=== PATIENT | female | born 1955 | race Caucasian/White ===

== ENCOUNTER → 2017-08-28 07:53 | Outpatient (REF) | payer OTHER, MEDICAID, SELFPAY ==
[2017-08-28 08:57] LABS: PTT Partial Thromboplastin Tim 42 SECONDS (26.4-36.2)
== END ==
LOC: LAB 07:53
PROVIDERS: Visit Provider Internal Medicine
DX: I26.99 Other pulmonary embolism without acute cor pulmonale (principal)
CPT/HCPCS: 36415; 85730

== ENCOUNTER → 2017-09-13 07:12 | Outpatient (REF) | payer OTHER, MEDICAID, SELFPAY ==
[2017-09-13 08:10] LABS: INR 3.1 (0.9-1.3); Prothrombin Time 33.3 SECONDS (10.1-12.7)
== END ==
LOC: LAB 07:12
PROVIDERS: Family Provider Nurse Practitioner Family; Visit Provider Internal Medicine
DX: Z79.01 Long term (current) use of anticoagulants (principal); Z92.29 Personal history of other drug therapy
CPT/HCPCS: 36415; 85610

== ENCOUNTER → 2017-09-18 14:13 | Outpatient (REF) | payer OTHER, MEDICAID, SELFPAY ==
[2017-09-18 14:58] LABS: Prothrombin Time 32.1 SECONDS (10.1-12.7)
== END ==
LOC: LAB 14:13
PROVIDERS: Visit Provider Nurse Practitioner Family
DX: I26.99 Other pulmonary embolism without acute cor pulmonale (principal)
CPT/HCPCS: 85610

== ENCOUNTER → 2017-10-02 07:17 | Outpatient (REF) | payer OTHER, MEDICAID, SELFPAY | LOC: LAB 07:17 | PROVIDERS: Visit Provider Internal Medicine | DX: I48.91 Unspecified atrial fibrillation (principal) | CPT/HCPCS: 36415; 85610 ==

== ENCOUNTER → 2017-10-30 07:47 | Outpatient (REF) | payer OTHER, MEDICAID, SELFPAY ==
[2017-10-30 08:47] LABS: INR 2.5 (0.9-1.3); Prothrombin Time 27.2 SECONDS (10.1-12.7)
== END ==
LOC: LAB 07:47
PROVIDERS: Family Provider Nurse Practitioner Family; Visit Provider Nurse Practitioner Family
DX: Z00.00 Encounter for general adult medical examination without abnormal findings (principal); Z92.29 Personal history of other drug therapy
CPT/HCPCS: 36415; 85610

== ENCOUNTER → 2017-11-29 09:33 | Outpatient (REF) | payer OTHER, MEDICAID, SELFPAY ==
[2017-11-29 10:15] LABS: INR 2.8 (0.9-1.3); Prothrombin Time 31.5 SECONDS (10.1-12.7)
== END ==
LOC: LAB 09:33
PROVIDERS: Family Provider Nurse Practitioner Family; Visit Provider Nurse Practitioner Family
DX: Z00.00 Encounter for general adult medical examination without abnormal findings (principal)
CPT/HCPCS: 36415; 85610

== ENCOUNTER → 2017-12-25 07:16 | Outpatient (REF) | payer OTHER, MEDICAID, SELFPAY ==
[2017-12-25 09:07] LABS: BUN Creatinine Ratio 18.8 (6-22); Blood Urea Nitrogen 15 mg/dL (7-17); Calcium 9.2 mg/dL (8.4-10.2); Carbon Dioxide 34 mmol/L (22-32); Chloride 100 mmol/L (98-107); Estimated Glomerular Filt Rate > 60.0 mL/min (>60); Glucose 146 mg/dL (80-110); HEMOLYSIS < 15 (0-50); Potassium 4.4 mmol/L (3.4-5.1); Sodium 143 mmol/L (137-145)
== END ==
LOC: LAB 07:16
PROVIDERS: Family Provider Nurse Practitioner Family; Visit Provider Nurse Practitioner Family
DX: R60.9 Edema, unspecified (principal)
CPT/HCPCS: 36415; 80048

== ENCOUNTER → 2017-12-27 06:38 | Outpatient (REF) | payer OTHER, MEDICAID, SELFPAY ==
[2017-12-27 09:46] LABS: INR 3.7 (0.9-1.3)
== END ==
LOC: LAB 06:38
PROVIDERS: Family Provider Nurse Practitioner Family; Visit Provider Nurse Practitioner Family
DX: Z00.00 Encounter for general adult medical examination without abnormal findings (principal)
CPT/HCPCS: 36415; 85610

== ENCOUNTER → 2018-01-03 12:26 | Outpatient (REF) | payer OTHER, MEDICAID, SELFPAY ==
[2018-01-03 12:47] LABS: INR 1.8 (0.9-1.3); Prothrombin Time 19.7 SECONDS (10.1-12.7)
== END ==
LOC: LAB 12:26
PROVIDERS: Family Provider Nurse Practitioner Family; Visit Provider Internal Medicine
DX: I48.91 Unspecified atrial fibrillation (principal); Z51.81 Encounter for therapeutic drug level monitoring
CPT/HCPCS: 85610

== ENCOUNTER → 2018-01-10 07:06 | Outpatient (REF) | payer OTHER, MEDICAID, SELFPAY ==
[2018-01-10 07:38] LABS: INR 1.5 (0.9-1.3); Prothrombin Time 16.6 SECONDS (10.1-12.7)
== END ==
LOC: LAB 07:06
PROVIDERS: Family Provider Nurse Practitioner Family; Visit Provider Internal Medicine
DX: Z51.81 Encounter for therapeutic drug level monitoring (principal)
CPT/HCPCS: 36415; 85610

== ENCOUNTER → 2018-01-12 15:51 | Outpatient (REF) | payer OTHER, MEDICAID, SELFPAY ==
[2018-01-12 15:55] LABS: Hematocrit 38.5 % (36-46); Hemoglobin 13.3 g/dL (12.0-16.0)
== END ==
LOC: LAB 15:51
PROVIDERS: Family Provider Nurse Practitioner Family; Visit Provider Nurse Practitioner Family
DX: N95.0 Postmenopausal bleeding (principal)
CPT/HCPCS: 85014; 85018

== ENCOUNTER → 2018-01-16 12:03 | Outpatient (REF) | payer OTHER, MEDICAID, SELFPAY ==
[2018-01-16 12:11] LABS: Add Manual Diff / Slide Review NO; Basophils Percent Auto 0.8 % (0-2); Eosinophils Percent Auto 3.2 % (2-4); Hematocrit 35.6 % (36-46); Hemoglobin 11.8 g/dL (12.0-16.0); Lymphocytes Percent Auto 20.5 % (25-40); Mean Corpuscular HGB Conc 33.3 % (30-36); Mean Corpuscular Hemoglobin 30.1 PG (26-34); Mean Corpuscular Volume 90.6 fL (80-100); Monocytes Percent Auto 5.5 % (3-14); Neutrophils Absolute Auto 5400 /uL (3000-5900); Platelet Count 252 X10^3/uL (150-400); Red Blood Cell Count 3.92 X10^6/uL (4.0-5.2); Red Cell Distribution Width 13.7 % (11.6-14.8); White Blood Cell Count 7.7 X10^3/uL (4.5-11.0)
[2018-01-16 12:12] LABS: INR 1.8 (0.9-1.3); Prothrombin Time 19.1 SECONDS (10.1-12.7)
[2018-01-16 12:21] LABS: Blood Urea Nitrogen 17 mg/dL (7-17); Calcium 9.5 mg/dL (8.4-10.2); Carbon Dioxide 34 mmol/L (22-32); Chloride 98 mmol/L (98-107); Estimated Glomerular Filt Rate 56.4 mL/min (>60); Glucose 169 mg/dL (80-110); HEMOLYSIS < 15 (0-50); Potassium 4.5 mmol/L (3.4-5.1); Sodium 144 mmol/L (137-145)
== END ==
LOC: LAB 12:03
PROVIDERS: Family Provider Nurse Practitioner Family; Visit Provider Internal Medicine
DX: N93.9 Abnormal uterine and vaginal bleeding, unspecified (principal)
CPT/HCPCS: 80048; 85025; 85610

== ENCOUNTER → 2018-01-25 14:33 | Outpatient (REF) | payer OTHER, MEDICAID, SELFPAY ==
[2018-01-25 14:39] LABS: Add Manual Diff / Slide Review NO; Basophils Percent Auto 0.7 % (0-2); Eosinophils Percent Auto 3.7 % (2-4); Hematocrit 32.6 % (36-46); Hemoglobin 11.2 g/dL (12.0-16.0); Lymphocytes Percent Auto 22.5 % (25-40); Mean Corpuscular HGB Conc 34.2 % (30-36); Mean Corpuscular Hemoglobin 30.5 PG (26-34); Monocytes Percent Auto 5.7 % (3-14); Neutrophils Absolute Auto 4700 /uL (3000-5900); Neutrophils Percent Auto 67.4 % (50-75); Platelet Count 277 X10^3/uL (150-400); Red Blood Cell Count 3.67 X10^6/uL (4.0-5.2); Red Cell Distribution Width 13.6 % (11.6-14.8)
[2018-01-25 14:48] LABS: INR 2.1 (0.9-1.3); Prothrombin Time 22.7 SECONDS (10.1-12.7)
== END ==
LOC: LAB 14:33
PROVIDERS: Family Provider Nurse Practitioner Family; Visit Provider Internal Medicine
DX: I10 Essential (primary) hypertension (principal); N93.9 Abnormal uterine and vaginal bleeding, unspecified; Z92.29 Personal history of other drug therapy
CPT/HCPCS: 85025; 85610

== ENCOUNTER → 2018-01-30 10:35 | Outpatient (REF) | payer OTHER, MEDICAID, SELFPAY ==
[2018-01-30 10:57] LABS: Add Manual Diff / Slide Review NO; Basophils Percent Auto 1.1 % (0-2); Eosinophils Percent Auto 3.5 % (2-4); Hematocrit 33.5 % (36-46); Hemoglobin 11.3 g/dL (12.0-16.0); Lymphocytes Percent Auto 20.8 % (25-40); Mean Corpuscular HGB Conc 33.9 % (30-36); Mean Corpuscular Hemoglobin 30.6 PG (26-34); Mean Corpuscular Volume 90.5 fL (80-100); Monocytes Percent Auto 5.6 % (3-14); Neutrophils Absolute Auto 4500 /uL (3000-5900); Platelet Count 285 X10^3/uL (150-400); Red Cell Distribution Width 14.2 % (11.6-14.8); White Blood Cell Count 6.6 X10^3/uL (4.5-11.0)
[2018-01-30 10:58] LABS: INR 2.1 (0.9-1.3); Prothrombin Time 22.9 SECONDS (10.1-12.7)
[2018-01-30 11:13] LABS: Blood Urea Nitrogen 16 mg/dL (7-17); Calcium 8.9 mg/dL (8.4-10.2); Carbon Dioxide 32 mmol/L (22-32); Chloride 99 mmol/L (98-107); Estimated Glomerular Filt Rate > 60.0 mL/min (>60); Glucose 183 mg/dL (80-110); HEMOLYSIS < 15 (0-50); Sodium 141 mmol/L (137-145)
[2018-01-30 11:38] LABS: Thyroid Stimulating Hormone 3.36 uIU/mL (0.47-4.68)
== END ==
LOC: LAB 10:35
PROVIDERS: Family Provider Nurse Practitioner Family; Visit Provider Internal Medicine
DX: N93.9 Abnormal uterine and vaginal bleeding, unspecified (principal)
CPT/HCPCS: 80048; 84443; 85025; 85610

== ENCOUNTER → 2018-01-31 07:41 | Outpatient (REF) | payer OTHER, MEDICAID, SELFPAY ==
[2018-01-31 08:17] LABS: INR 2.2 (0.9-1.3); Prothrombin Time 24.4 SECONDS (10.1-12.7)
== END ==
LOC: LAB 07:41
PROVIDERS: Family Provider Nurse Practitioner Family; Visit Provider Internal Medicine
DX: Z51.81 Encounter for therapeutic drug level monitoring (principal)
CPT/HCPCS: 36415; 85610

== ENCOUNTER → 2018-02-11 13:01 | Outpatient (CLI) | payer OTHER, MEDICAID, SELFPAY | PROVIDERS: Family Provider Nurse Practitioner Family; Visit Provider Internal Medicine | DX: N95.0 Postmenopausal bleeding (principal); Z53.9 Procedure and treatment not carried out, unspecified reason ==

== ENCOUNTER → 2018-02-21 07:08 | Outpatient (REF) | payer OTHER, MEDICAID, SELFPAY ==
[2018-02-21 07:35] LABS: Hematocrit 34.1 % (36-46); Hemoglobin 11.4 g/dL (12.0-16.0)
== END ==
LOC: LAB 07:08
PROVIDERS: Family Provider Nurse Practitioner Family; Visit Provider Nurse Practitioner Family
DX: N93.9 Abnormal uterine and vaginal bleeding, unspecified (principal)
CPT/HCPCS: 36415; 85014; 85018

== ENCOUNTER → 2018-03-04 14:44 | Outpatient (CLI) | payer OTHER, MEDICAID, SELFPAY ==
--- NOTE | 2018-03-04 | DI.US.S_ITS ---
PROCEDURE: US PELVIC COMPLETE INDICATIONS: POST MENOPAUSAL BLEEDING TECHNIQUE: Real-time scanning was performed of the pelvic organs, with image documentation. Additional endovaginal scanning was necessary due to incomplete visualization of the adnexal and endometrial structures by transabdominal scanning. COMPARISON: None. FINDINGS: This study is limited by body habitus. Transabdominal scanning: The right kidney is not seen. No abnormality the left kidney is seen. No pathologic free abdominal or pelvic fluid. Endovaginal scanning: Uterus: Uterus is normal in size at 9.6 x 6.4 x 6.9 cm. The endometrium is grossly thickened at 36 mm in combined thickness. The endometrial stripe appears hypervascular. Ovaries: Neither ovary can be seen. No adnexal masses are seen. IMPRESSION: Gross thickening of the endometrial stripe, which is hypervascular. Given clinical history, these imaging findings are highly suspicious for an endometrial neoplasm. Recommend correlation with endometrial histology, as clinically appropriate. Dictated by: Tip Crum M.D. on 03/04/2018 at 15:51 Approved by: Tip Crum M.D. on 03/04/2018 at 15:53
== END ==
PROVIDERS: Family Provider Nurse Practitioner Family; Visit Provider Internal Medicine
DX: N95.0 Postmenopausal bleeding (principal); R93.89 Abnormal findings on diagnostic imaging of other specified body structures
CPT/HCPCS: 76830; 76856

== ENCOUNTER → 2018-03-20 16:32 | Outpatient (REF) | payer OTHER, MEDICAID, SELFPAY ==
[2018-03-20 16:37] LABS: Hemoglobin 10.3 g/dL (12.0-16.0)
== END ==
LOC: LAB 16:32
PROVIDERS: Family Provider Nurse Practitioner Family; Visit Provider Nurse Practitioner Family
DX: N39.9 Disorder of urinary system, unspecified (principal)
CPT/HCPCS: 85014; 85018

== ENCOUNTER → 2018-03-22 13:02 | Outpatient (REF) | payer OTHER, MEDICAID, SELFPAY ==
[2018-03-22 13:13] LABS: Hematocrit 31.9 % (36-46); Hemoglobin 10.5 g/dL (12.0-16.0)
== END ==
LOC: LAB 13:02
PROVIDERS: Family Provider Nurse Practitioner Family; Visit Provider Registered Nurse
DX: N93.9 Abnormal uterine and vaginal bleeding, unspecified (principal)
CPT/HCPCS: 85014; 85018

== ENCOUNTER → 2018-03-26 07:37 | Outpatient (REF) | payer OTHER, MEDICAID, SELFPAY ==
[2018-03-26 08:21] LABS: Add Manual Diff / Slide Review NO; Basophils Percent Auto 0.6 % (0-2); Eosinophils Percent Auto 2.4 % (2-4); Hematocrit 31.4 % (36-46); Hemoglobin 10.4 g/dL (12.0-16.0); Lymphocytes Percent Auto 18.5 % (25-40); Mean Corpuscular HGB Conc 33.2 % (30-36); Mean Corpuscular Hemoglobin 31.1 PG (26-34); Mean Corpuscular Volume 93.6 fL (80-100); Monocytes Percent Auto 5.2 % (3-14); Neutrophils Absolute Auto 5400 /uL (3000-5900); Neutrophils Percent Auto 73.3 % (50-75); Platelet Count 276 X10^3/uL (150-400); Red Blood Cell Count 3.36 X10^6/uL (4.0-5.2); Red Cell Distribution Width 13.7 % (11.6-14.8); White Blood Cell Count 7.4 X10^3/uL (4.5-11.0)
== END ==
LOC: LAB 07:37
PROVIDERS: Family Provider Nurse Practitioner Family; Visit Provider Nurse Practitioner Family
DX: N93.9 Abnormal uterine and vaginal bleeding, unspecified (principal)
CPT/HCPCS: 36415; 85025

== ENCOUNTER → 2018-05-06 12:48 | Outpatient (CLI) | payer OTHER, MEDICAID, SELFPAY ==
--- NOTE | 2018-05-06 | DI.ECHO.S_ITS ---
[facility]---------+ [facility] +---------+ : : [address] : : : : [id number] : : : : Phone: [phone] Echocardiogram Report + + :Name: FORTUNATO RESENDIZ Study Date: 05/06/2018 Height: 64 in : :[facility] Exam Location: [facility] Weight: 340 lb : : Gender: Female BSA: 2.5 m2 : :: 1955 Age: 62 yrs BP: 142/80 mmHg: :Reason For Study: Hypertension : : Performed By: Page Caicedo : :Referring: GIRMA HOOVER : + + Interpretation Summary Technically difficult study. Moderate concentric left ventricular hypertrophy with ejection fraction 55- 60%. No obvious valvular abnormality. Procedure: A two-dimensional transthoracic echocardiogram with color flow and Doppler was performed. The study quality was technically difficult. The echocardiogram was technically challenging due to patient body habitus. The patient had limtied mobility and was unbale to be repositioned. The apical imaging window was difficult to obtain and suboptimal in quality. There is no prior echocardiogram noted for this patient. The patient was in normal sinus rhythm during the exam. Left Ventricle: The left ventricle is normal in size. There is moderate concentric left ventricular hypertrophy. The ejection fraction is estimated to be 55-60%. There are no obvious focal wall motion abnormalities noted but poor endocardial definition reduces the sensitivity for the detection of such. Right Ventricle: The right ventricle is not well visualized. Atria: The left atrium is not well visualized. Right atrium not well visualized. Mitral Valve: There is a flat closure plane of the the mitral valve leaflets. The mitral valve leaflets appear borderline thickened, but open well. There is trace mitral regurgitation. Aortic Valve: The aortic valve is not well visualized. There is no hemodynamically significant valvular aortic stenosis. Tricuspid Valve: The tricuspid valve is not well visualized. Pulmonic Valve: The pulmonic valve is not well visualized. Great Vessels: The ascending aorta could not be visualized. The inferior vena cava was not visualized. Pericardium/ Pleura There is an anterior echo-free space consistent with a fat pad. There is no pericardial effusion. There is no pleural effusion. MMode/2D Measurements & Calculations LVIDd: 4.3 cm LVOT diam: 2.1 cm LVIDs: 2.7 cm asc Aorta Diam: 3.5 cm FS: 36.4 % Ao Arch Diam (Prox Trans): 2.7 cm IVSd: 1.7 cm LVPWd: 1.7 cm LV joyce. diameter/BSA (cm/m^2): 1.7 LV sys. diameter/BSA (cm/m^2): 1.1 Doppler Measurements & Calculations Ao V2 max: 140.9 cm/sec LVOT Max Simba: 90.8 cm/sec Ao V2 mean: 103.7 cm/sec LV V1 max P.3 mmHg Ao max P.9 mmHg LV V1 VTI: 13.4 cm Ao mean P.6 mmHg SARAH BETH(I,D): 2.0 cm2 Ao V2 VTI: 23.8 cm SARAH BETH(V,D): 2.3 cm2 sev ratio: 0.56 SARAH BETH indexed to BSA (cm^2/m^2): 0.83 MV E max simba: 76.6 cm/sec PA V2 max: 76.1 cm/sec MV A max simba: 71.0 cm/sec PA V2 mean: 47.1 cm/sec MV E/A: 1.1 PA mean P.0 mmHg MV dec time: 0.14 sec PA pr(Accel): 29.1 mmHg SV(LVOT): 48.4 ml Electronically signed by: Shara Briceno on Reading Physician:05/06/2018 04:34 PM
== END ==
PROVIDERS: Family Provider Nurse Practitioner Family; Visit Provider Nurse Practitioner Family
DX: I10 Essential (primary) hypertension (principal)
CPT/HCPCS: 93306

== ENCOUNTER → 2018-05-29 08:06 | Outpatient (CLI) | payer OTHER, MEDICAID, SELFPAY ==
--- NOTE | 2018-05-29 | DI.MG.S_ITS ---
BILATERAL DIGITAL SCREENING MAMMOGRAM 3D/2D WITH CAD: 05/29/2018 CLINICAL: Baseline exam. Routine screening. No prior exams were available for comparison. The tissue of both breasts is predominantly fatty. Current study was also evaluated with a Computer Aided Detection (CAD) system. No significant masses, calcifications, or other findings are seen in either breast. IMPRESSION: NEGATIVE There is no mammographic evidence of malignancy. A 1 year screening mammogram is recommended. This exam was interpreted at Station ID: [id number]. NOTE: For mammograms, a report in lay terms will be sent to the patient. Approximately 15% of breast malignancies will not be visualized mammographically. In the management of a palpable breast mass, a negative mammogram must not discourage biopsy of a clinically suspicious lesion. Electronically Signed By: Mireya reed/miguel:05/29/2018 10:33:19 letter sent: Normal Exam ACR BI-RADS Category 1: Negative [id number]
== END ==
PROVIDERS: Family Provider Nurse Practitioner Family; PCP Internal Medicine; Visit Provider Internal Medicine
DX: Z12.31 Encounter for screening mammogram for malignant neoplasm of breast (principal)
CPT/HCPCS: 77063; 77067

== ENCOUNTER → 2018-06-04 10:13 | Outpatient (CLI) | payer OTHER, MEDICAID, SELFPAY ==
--- NOTE | 2018-06-04 | DI.NM.S_ITS ---
PROCEDURE: NM PEPE PERF SPECT R&S PHARM Rest and pharmacological stress myocardial perfusion SPECT with gated imaging and ejection fraction RADIOPHARMACEUTICAL: 25.3 mCi Tc-99m tetrafosmin IV at rest and 26.8 mCi Tc-99m tetrafosmin IV at peak effect of pharmacological stress. [id number]-sznprgvw was performed. INDICATIONS: Atherosclerotic heart disease of [place] coronary TECHNIQUE: Radiopharmaceutical was injected at peak stress test, and also at rest. SPECT images were obtained. SPECT myocardial perfusion images were displayed in short axis, horizontal long axis, and vertical long axis views. Gated images were reviewed using Resource [employer]uru software. COMPARISON: None. CARDIAC STRESS: A pharmacologic stress test was performed under the supervision of an attending staff, using an infusion of lexiscan 0.4mg IV X1. Hemodynamic data: There is normal blood pressure and heart rate response to pharmacologic stress. Symptoms: The patient denied anginal chest pain. Aminophylline: none EKG: Resting ECG shows sinus rhythm with non-specific ST-T changes. No diagnostic changes of ischemia with lexiscan; no ectopy. FINDINGS: Raw data: There is good myocardial uptake of radiotracer. No significant motion artifacts. Ijqj-bn-cuatl ratio is 0.23 (normal is less than 0.38 for tetrafosmin tracer). Left ventricle function: Gated images demonstrate normal left ventricular wall thickening. No segmental wall motion abnormalities. No transient ischemic dilation; TID is 0.99 (normal less than 1.3). Left ventricle resting end diastolic volume is 140 mL. Left ventricle stress ejection fraction is 63%; normal range is above 45%. Myocardial perfusion: There is normal distribution of activity in the right and left ventricular myocardium. No fixed or reversible perfusion defects. IMPRESSION: Low risk, normal pharmaceutical nuclear stress test 1) No perfusion evidence of ischemia or infarction. 2) Normal left ventricular size, wall motion, and systolic function (post stress EF of 63%). 3) No ECG evidence of ischemia with lexiscan. 4) No angina during the study. 5) No prior nuclear stress test available for comparison. Dictated by: Narinder Renteria MD on 06/05/2018 at 17:24 Approved by: Narinder Renteria MD on 06/05/2018 at 17:27
--- NOTE | 2018-06-04 11:25 | PM.TREADMILL ---
Cardiac Stress Test Report Referral & Results Date Patient Seen: 06/04/18 Requesting provider: Ryan Enriquez Indication: Chest pain, known coronary disease status post bypass surgery 2014 Rest ECG: Q-waves inferiorly otherwise unremarkable Procedure Note: After both written and verbal informed consent the patient had an IV started by the diagnostic imaging RN, and then was hooked up to the treadmill monitoring system. The Lexiscan material, and then the Cardiolite tracer, were administered sequentially. An additional 3 min was spent monitoring the patient while supine on the gurney. The patient had a normal response to all infused materials. Impression: Normal response as above. Please see perfusion imaging report for details regarding possible ischemia Please note: Actual ECG tracings can be found in the PACS system.
== END ==
PROVIDERS: Family Provider Nurse Practitioner Family; PCP Internal Medicine; Visit Provider Internal Medicine Cardiovascular Disease
DX: R07.9 Chest pain, unspecified (principal); I25.10 Atherosclerotic heart disease of native coronary artery without angina pectoris; Z95.1 Presence of aortocoronary bypass graft
CPT/HCPCS: 78452; 93016; 93017; 93018; A9502; J2785

== ENCOUNTER 2018-08-02 09:45 | Day surgery (SDC) | payer OTHER, MEDICAID, SELFPAY ==
[2018-07-10 12:08] VITALS: BMI 58.0
[2018-08-02] VITALS (8 sets, daily range): BP systolic 103–179; BP diastolic 62–107; PULSE 82–95; RESP 15–24; TEMP 36.3–36.8; O2SAT 91–94; BMI 56.7
--- NOTE | 2018-08-02 | PATH_ITS ---
[facility] Accession Number: [id number] . 01 Material submitted: . PART A: ENDOMETRIAL PART B: ENDOCERVICAL CURETTINGS . 02 Diagnosis: A. Endometrial Biopsy: Endometrial adenocarcinoma, endometrioid type, FIGO grade 1. . B. Endocervical Curettings: Multiple fragments of endometrial adenocarcinoma, endometrioid type, FIGO grade 1 similar to that present in part A. No definite endocervical tissue identified. . . . COMMENT: Case reviewed by Dr. Dulce Biggs, who concurs with the diagnosis. . The results of this evaluation are telephoned to the office of Dr. Sandoval Harrison at 2:20 p.m. on 08/05/2018. MRV/08/05/2018 . 02 Electronically signed: . Dawson Holden MD, Pathologist NPI- [id number] . 01 Gross description: . Received two formalin-filled containers, both labeled with the patient's name: . A. In a container labeled endometrial curetting, the specimen consists of a pink-hamlin, rough, friable portion of tissue which measures 2.0 x 1.5 x 1.1 cm. The specimen is sectioned into multiple pieces and entirely submitted in cassettes A1-A3. The remaining sample consists of multiple portions of tissue and blood which aggregate to 6.0 x 2.0 x 0.5 cm. The specimen is filtered and entirely submitted in cassettes A4-A7. B. In a container labeled endocervical 2, are multiple fragments of tissue, blood, and mucoid material which aggregate to 2.0 x 1.5 x 0.2 cm. The specimen is filtered and entirely submitted in cassette B. ([id number]) /FRR . 02 Pathologist provided ICD-10: C54.1 . 02 CPT . 488559, 212797 Performed at: 01 [facility] [address] [place] [address], [place], [place] [id number] MD Alfie Hodge MD Phone: [phone] Performed at: 02 [facility] [address] [place], [place] [id number] MD Dulce Biggs MD Phone: [phone]
[2018-08-02] MEDS: INSULIN REGULAR 100 UNIT/ML 3 ML VIAL 6 UNIT SUBCUT (10:45)
[2018-08-02] MEDS: LACTATED RINGERS 1,000 ML 42 ML IV (10:47)
[2018-08-02] MEDS: FAMOTIDINE 20 MG/50 ML PIGGYBACK 200 MG IV (10:50)
--- NOTE | 2018-08-02 10:50 | PM.PREOP ---
Pre-operative Note Interval Note History & Physical reviewed/Exam performed by Physician: Yes Changes to H&P: No ASA Class (for procedural sedation): III
[2018-08-02] MEDS: ALBUTEROL HFA 60 PUFF/8 GM INH INH (10:53)
[2018-08-02] MEDS: CEFOTETAN 2 GM/50 ML PIGGYBACK IV (11:00)
--- NOTE | 2018-08-02 11:14 | SUR.OPER ---
Lithotomy on padded OR bed, head on pillow, arms secured on padded arm boards at <90 degrees abduction. Legs secured in padded yellow fins stirrups.
--- NOTE | 2018-08-02 11:29 | PM.GYNOP.1 ---
Operative Date/Time/Diagnoses Date of procedure: 08/02/18 Time of procedure: 11:29 Pre-op diagnosis: Postmenopausal bleeding Thickened endometrial Post-op diagnosis: same Procedure: Procedures Operation Date: 08/02/18 10:45 Actual Procedures Side Surgeon p Hysteroscopy D&C Sandoval Harrison MD Indications: Postmenopausal bleeding Thickened endometrium Surgeon: Sandoval Harrison Anesthesia Type: General Operative Notes Findings: Large amounts of endometrial tissue Closure Type: not applicable Specimen(s): endometrial curettings and other (Endocervical curettings) Estimated blood loss (mL): 50 Blood products transfused: none Procedure in detail: The patient was placed supine upon the operating table and anesthetized. She was placed in the dorsal lithotomy position. she was then draped and prepared in the usual fashion. a speculum was set in place in the anterior lip of the cervix grasped with a toothed tenaculum. Uterine cavity sounded to 9 cm. Uterine cervix was dilated to Hegar 8. Endocervical curettage was performed. endometrial curettage revealed large amounts of tissue compatible with an adenocarcinoma. At the end of the procedure the speculum was removed as well as the tenaculum. Patient was taken to the recovery room in satisfactory condition Complications: none Post-operative Condition: stable Disposition: PACU Plan for aftercare: detention
--- NOTE | 2018-08-02 11:31 | SUR.PHASEI ---
ANESTHESIA AWARE OF PT BP READING IN PACU, NO NEW ORDERS.
--- NOTE | 2018-08-02 11:33 | PM.DS.1 ---
History of Present Illness Date Patient Seen: 08/02/18 Time Patient Seen: 11:33 Chief complaint: [id number] HYSTEROSCOPY D&C Narrative: The patient is a 62 postmenopausal female with postmenopausal bleeding and a thickened endometrium. Patient was scheduled for a a D&C for tissue diagnosis. Discharge Providers Discharge Date: 08/02/18 Primary care physician: Judy Castrejon MD Discharge provider: Sandoval Harrison MD Summary Discharge Diagnosis: Postmenopausal bleeding Thickened endometrium Hospital Course: Patient was admitted and underwent dilatation and curettage. Large amounts of tissue were obtained compatible with an adenocarcinoma Status at Discharge Cognitive/behavioral status at discharge: oriented Functional status at discharge: wheelchair bound Overall status at discharge: patient is back to baseline Time Spent with Patient Less than 30 minutes Exam Vital Signs (past 8 hours): - 08/02/18 10:16 08/02/18 11:25 Temperature 98.3 F 97.6 F Pulse Rate 95 H 87 Respiratory Rate 24 16 Blood Pressure 107/62 179/107 H Pulse Oximetry 94 91 Oxygen Delivery Method Room Air Narrative Exam Narrative: Minimal vaginal bleeding Discharge Plan Discharge Plan Transfer to: [facility] Under care of provider: Judy Brar MD Transportation: Facility vehicle Discharge comment: Diabetes needs to be in better control I certify the [facility] care is medically necessary on a continuing basis for any conditions for which he/ she received care during this hospitalization.: Yes The receiving facility has agreed to accept transfer and provide medical treatment.: Yes Discharge Med Rec/Prescriptions Prescriptions: No Action misoprostol 200 mcg tablet 400 mcg Vaginal ONCE Qty: 2 RF: 0 simvastatin [Zocor] 20 mg tablet 20 mg PO BEDTIME RF: 0 aspirin 81 mg tablet,delayed release (DR/EC) 81 mg PO DAILY RF: 0 sertraline 50 mg tablet 50 mg PO DAILY RF: 0 levothyroxine 112 mcg capsule 112 mcg PO DAILY RF: 0 melatonin 5 mg capsule 5 mg PO BEDTIME RF: 0 metoprolol succinate 25 mg tablet extended release 24 hr 25 mg PO DAILY RF: 0 furosemide [Lasix] 40 mg tablet 40 mg PO BID PRN (Reason: edema, swelling) RF: 0 potassium chloride 20 mEq/15 mL liquid 20 meq PO BID RF: 0 ferrous sulfate 325 mg (65 mg iron) tablet 325 mg PO BID RF: 0 docusate sodium 100 mg capsule 100 mg PO DAILY PRN (Reason: Constipation) RF: 0 diphenhydramine HCl [Benadryl] 25 mg capsule 25 mg PO Q4-6H PRN (Reason: as directed) RF: 0 ascorbic acid (vitamin C) 500 mg tablet 500 mg PO BID RF: 0 Follow up/Referrals: Judy Castrejon MD [Primary Care Provider] - Sandoval Harrison MD [Physician] - Discharge Orders: Discharge (Now); Ordered 08/02/18 Ordered By: Sandoval Harrison Provider Discharge Instructions Diet: Carb-consistent/Diabetic Liquid consistency: Normal/Thin Food texture: Regular Skin/Wound/Dressing Care Report to your healthcare provider any signs of infection, such as:: chills, fever, increased pain, unusual drainage and unusual redness Dressing: None Other wound treatment: None Visit Report/Discharge Packet Instructions: DI for Hysteroscopy Stand Alone Forms: Surgery Discharge Discharge Data Primary Care Provider: Judy Castrejon Attending Provider: Sandoval Harrison
--- NOTE | 2018-08-02 11:35 | SUR.PHASEI ---
ANESTHESIA AWARE OF PT BLOOD GLUCOSE READING IN PACU, NO NEW ORDERS. PT ASYMPTOMATIC AT THIS TIME.
--- NOTE | 2018-08-02 11:38 | P.DS_ITS ---
History of Present Illness Date Patient Seen: 08/02/18 Time Patient Seen: 11:33 Chief complaint: [id number] HYSTEROSCOPY D&C Narrative: The patient is a 62 postmenopausal female with postmenopausal bleeding and a thickened endometrium. Patient was scheduled for a a D&C for tissue diagnosis. Discharge Providers Discharge Date: 08/02/18 Primary care physician: Judy Castrejon MD Discharge provider: Sandoval Harrison MD Summary Discharge Diagnosis: Postmenopausal bleeding Thickened endometrium Hospital Course: Patient was admitted and underwent dilatation and curettage. Large amounts of tissue were obtained compatible with an adenocarcinoma Status at Discharge Cognitive/behavioral status at discharge: oriented Functional status at discharge: wheelchair bound Overall status at discharge: patient is back to baseline Time Spent with Patient Less than 30 minutes Exam Vital Signs (past 8 hours): - 08/02/18 10:16 08/02/18 11:25 Temperature 98.3 F 97.6 F Pulse Rate 95 H 87 Respiratory Rate 24 16 Blood Pressure 107/62 179/107 H Pulse Oximetry 94 91 Oxygen Delivery Method Room Air Narrative Exam Narrative: Minimal vaginal bleeding Discharge Plan Discharge Plan Transfer to: [facility] Under care of provider: Judy Brar MD Transportation: Facility vehicle Discharge comment: Diabetes needs to be in better control I certify the [facility] care is medically necessary on a continuing basis for any conditions for which he/ she received care during this hospitalization.: Yes The receiving facility has agreed to accept transfer and provide medical treatment.: Yes Discharge Med Rec/Prescriptions Prescriptions: No Action misoprostol 200 mcg tablet 400 mcg Vaginal ONCE Qty: 2 RF: 0 simvastatin [Zocor] 20 mg tablet 20 mg PO BEDTIME RF: 0 aspirin 81 mg tablet,delayed release (DR/EC) 81 mg PO DAILY RF: 0 sertraline 50 mg tablet 50 mg PO DAILY RF: 0 levothyroxine 112 mcg capsule 112 mcg PO DAILY RF: 0 melatonin 5 mg capsule 5 mg PO BEDTIME RF: 0 metoprolol succinate 25 mg tablet extended release 24 hr 25 mg PO DAILY RF: 0 furosemide [Lasix] 40 mg tablet 40 mg PO BID PRN (Reason: edema, swelling) RF: 0 potassium chloride 20 mEq/15 mL liquid 20 meq PO BID RF: 0 ferrous sulfate 325 mg (65 mg iron) tablet 325 mg PO BID RF: 0 docusate sodium 100 mg capsule 100 mg PO DAILY PRN (Reason: Constipation) RF: 0 diphenhydramine HCl [Benadryl] 25 mg capsule 25 mg PO Q4-6H PRN (Reason: as directed) RF: 0 ascorbic acid (vitamin C) 500 mg tablet 500 mg PO BID RF: 0 Follow up/Referrals: Judy Castrejon MD [Primary Care Provider] - Sandoval Harrison MD [Physician] - Discharge Orders: Discharge (Now); Ordered 08/02/18 Ordered By: Sandoval Harrison Provider Discharge Instructions Diet: Carb-consistent/Diabetic Liquid consistency: Normal/Thin Food texture: Regular Skin/Wound/Dressing Care Report to your healthcare provider any signs of infection, such as:: chills, fever, increased pain, unusual drainage and unusual redness Dressing: None Other wound treatment: None Visit Report/Discharge Packet Instructions: DI for Hysteroscopy Stand Alone Forms: Surgery Discharge Discharge Data Primary Care Provider: Judy Castrejon Attending Provider: Sandoval Harrison
--- NOTE | 2018-08-02 12:44 | SUR.PHASEII ---
DISCUSSED IMPORTANCE OF FOLLOWING UP WITH PT PCP REGARDING HER BLOOD GLUCOSE READING UPON ADMIT. PT VOICED UNDERSTANDING AND STATED SHE WOULD DISCUSS DIABETIC STATUS WITH HER PCP. PT ASYMPTOMATIC DURING CARE TODAY. PT DRESSED SELF AND DC TO CARE FACILITY WITH FRIEND VIA WC IN STABLE CONDITION.
== END 2018-08-02 12:49 ==
PROVIDERS: Family Provider Nurse Practitioner Family; PCP Internal Medicine
PROC: 0UDB8ZZ Extraction of Endometrium, Via Natural or Artificial Opening Endoscopic (ICD-10-PCS; CPT 58558; principal; 2018-08-02 10:45)
DX: C54.1 Malignant neoplasm of endometrium (principal); E66.01 Morbid (severe) obesity due to excess calories
CPT/HCPCS: 58558; J2405; J2704

== ENCOUNTER → 2018-08-15 08:27 | Outpatient (REF) | payer OTHER, MEDICAID, SELFPAY ==
[2018-08-15 08:42] LABS: Add Manual Diff / Slide Review NO; Basophils Absolute Auto 0 /uL (0-100); Basophils Percent Auto 0.7 % (0-2); Eosinophils Absolute Auto 200 /uL (0-450); Eosinophils Percent Auto 2.7 % (2-4); Hematocrit 43.3 % (36-46); Hemoglobin 14.4 g/dL (12.0-16.0); Lymphocytes Absolute Auto 1200 /uL (1100-4500); Lymphocytes Percent Auto 18.4 % (25-40); Mean Corpuscular HGB Conc 33.2 % (30-36); Mean Corpuscular Volume 90.4 fL (80-100); Monocytes Absolute Auto 400 /uL (0-900); Monocytes Percent Auto 5.4 % (3-14); Neutrophils Absolute Auto 4700 /uL (1500-7000); Neutrophils Percent Auto 72.8 % (50-75); Platelet Count 257 X10^3/uL (150-400); Red Blood Cell Count 4.79 X10^6/uL (4.0-5.2); Red Cell Distribution Width 13.5 % (11.6-14.8); White Blood Cell Count 6.5 X10^3/uL (4.5-11.0)
[2018-08-15 09:09] LABS: Hemoglobin A1C% w Est Avg Glu 11.6 % (4.0-6.0)
[2018-08-15 09:23] LABS: BUN Creatinine Ratio 24.3 (6-22); Blood Urea Nitrogen 17 mg/dL (7-17); Calcium 9.8 mg/dL (8.4-10.2); Carbon Dioxide 33 mmol/L (22-32); Chloride 93 mmol/L (98-107); Estimated Glomerular Filt Rate > 60.0 mL/min (>60); Glucose 320 mg/dL (80-110); HEMOLYSIS < 15 (0-50); Potassium 4.3 mmol/L (3.4-5.1); Sodium 136 mmol/L (137-145)
== END ==
LOC: LAB 08:27
PROVIDERS: Family Provider Nurse Practitioner Family; PCP Internal Medicine; Visit Provider Registered Nurse
DX: E11.9 Type 2 diabetes mellitus without complications (principal)
CPT/HCPCS: 36415; 80048; 83036; 85025

== ENCOUNTER → 2018-09-24 07:54 | Outpatient (ROUT) | payer OTHER, MEDICAID, SELFPAY ==
[2018-09-24 09:19] LABS: Erythrocyte Sedimentation Rate 65 MM/HR (0-20)
[2018-09-24 09:32] LABS: C-Reactive Protein Quant 7.6 mg/dL (<1.0)
[2018-09-24 09:43] LABS: Thyroid Stimulating Hormone 0.19 uIU/mL (0.47-4.68)
== END ==
PROVIDERS: Family Provider Nurse Practitioner Family; PCP Internal Medicine; Visit Provider Internal Medicine
DX: E03.9 Hypothyroidism, unspecified (principal); M25.50 Pain in unspecified joint
CPT/HCPCS: 36415; 84443; 85651; 86140

== ENCOUNTER → 2018-10-03 06:58 | Outpatient (ROUT) | payer OTHER, MEDICAID, SELFPAY ==
[2018-10-03 08:34] LABS: Add Manual Diff / Slide Review NO; Basophils Absolute Auto 0 /uL (0-100); Basophils Percent Auto 0.4 % (0-2); Eosinophils Absolute Auto 200 /uL (0-450); Eosinophils Percent Auto 2.2 % (2-4); Hematocrit 42.1 % (36-46); Hemoglobin 13.9 g/dL (12.0-16.0); Lymphocytes Absolute Auto 1600 /uL (1100-4500); Lymphocytes Percent Auto 17.2 % (25-40); Mean Corpuscular Hemoglobin 29.8 PG (26-34); Mean Corpuscular Volume 90.2 fL (80-100); Monocytes Absolute Auto 400 /uL (0-900); Monocytes Percent Auto 4.3 % (3-14); Neutrophils Absolute Auto 7100 /uL (1500-7000); Neutrophils Percent Auto 75.9 % (50-75); Platelet Count 361 X10^3/uL (150-400); Red Blood Cell Count 4.67 X10^6/uL (4.0-5.2); Red Cell Distribution Width 12.8 % (11.6-14.8); White Blood Cell Count 9.3 X10^3/uL (4.5-11.0)
[2018-10-03 08:40] LABS: Hemoglobin A1C% w Est Avg Glu 10.2 % (4.0-6.0)
[2018-10-03 08:46] LABS: BUN Creatinine Ratio 33.3 (6-22); Blood Urea Nitrogen 20 mg/dL (7-17); Calcium 9.8 mg/dL (8.4-10.2); Carbon Dioxide 35 mmol/L (22-32); Chloride 95 mmol/L (98-107); Estimated Glomerular Filt Rate > 60.0 mL/min (>60); Glucose 199 mg/dL (80-110); HEMOLYSIS 38 (0-50); Sodium 139 mmol/L (137-145)
== END ==
PROVIDERS: Family Provider Nurse Practitioner Family; PCP Internal Medicine; Visit Provider Registered Nurse
DX: E11.9 Type 2 diabetes mellitus without complications (principal)
CPT/HCPCS: 36415; 80048; 83036; 85025

== ENCOUNTER → 2018-10-17 07:04 | Outpatient (ROUT) | payer OTHER, MEDICAID, SELFPAY ==
[2018-10-17 08:11] LABS: Add Manual Diff / Slide Review NO; Basophils Absolute Auto 0 /uL (0-100); Basophils Percent Auto 0.7 % (0-2); Eosinophils Absolute Auto 200 /uL (0-450); Hematocrit 40.8 % (36-46); Hemoglobin 13.7 g/dL (12.0-16.0); Lymphocytes Absolute Auto 1300 /uL (1100-4500); Lymphocytes Percent Auto 20.8 % (25-40); Mean Corpuscular HGB Conc 33.7 % (30-36); Mean Corpuscular Hemoglobin 30.2 PG (26-34); Mean Corpuscular Volume 89.5 fL (80-100); Monocytes Absolute Auto 400 /uL (0-900); Monocytes Percent Auto 6.2 % (3-14); Neutrophils Absolute Auto 4200 /uL (1500-7000); Neutrophils Percent Auto 69.3 % (50-75); Platelet Count 264 X10^3/uL (150-400); Red Blood Cell Count 4.55 X10^6/uL (4.0-5.2); Red Cell Distribution Width 13.4 % (11.6-14.8); White Blood Cell Count 6.1 X10^3/uL (4.5-11.0)
[2018-10-17 08:29] LABS: Blood Urea Nitrogen 15 mg/dL (7-17); Calcium 9.5 mg/dL (8.4-10.2); Carbon Dioxide 34 mmol/L (22-32); Chloride 98 mmol/L (98-107); Estimated Glomerular Filt Rate > 60.0 mL/min (>60); Glucose 162 mg/dL (80-110); HEMOLYSIS < 15 (0-50); Potassium 3.8 mmol/L (3.4-5.1); Sodium 140 mmol/L (137-145)
[2018-10-17 09:53] LABS: Hemoglobin A1C% w Est Avg Glu 9.7 % (4.0-6.0)
== END ==
PROVIDERS: Family Provider Nurse Practitioner Family; PCP Internal Medicine; Visit Provider Internal Medicine
DX: E11.9 Type 2 diabetes mellitus without complications (principal)
CPT/HCPCS: 36415; 80048; 83036; 85025

== ENCOUNTER → 2018-10-25 11:00 | Outpatient (CLI) | payer OTHER, MEDICAID, SELFPAY ==
--- NOTE | 2018-10-25 11:26 | DI.CT.S_ITS ---
PROCEDURE: CT CHEST ABD PEL W CON INDICATIONS: New Dx endometrial adenocarcinoma, FIGO grade 1 TECHNIQUE: After the administration of oral and intravenous contrast, 5 mm thick sections acquired from the lung apices to the symphysis. 5 mm coronal and sagittal reformats were performed, with additional 7 mm coronal MIP reformats through the lungs. For radiation dose reduction, the following was used: automated exposure control, adjustment of mA and/or kV according to patient size. COMPARISON: None. FINDINGS: Image quality: Excellent. CHEST: Lungs and pleura: No acute airspace opacities. No pleural effusions or pneumothorax. Central and peripheral airways appear patent and normal in caliber. Mediastinum: Heart size is normal. No pericardial effusion. No mediastinal or hilar adenopathy by size criteria. Thoracic aorta and central pulmonary arteries are normal in size. Esophagus is normal in caliber. No hiatal hernia. Chest wall: No axillary or supraclavicular adenopathy by size criteria. Thyroid gland appears normal. ABDOMEN: Solid organs: Liver is normal in size and enhancement. Gallbladder contains at least one large gallstone which is relatively radiolucent, slightly above water in radiodensity, measuring approximately 3.7 cm in maximal dimension. Biliary system is non dilated. Pancreas enhances normally. Spleen is normal in size and enhancement. No adrenal nodules. Kidneys demonstrate normal size and enhancement, without hydronephrosis. Peritoneum and bowel: Bowel loops demonstrate normal wall thickness and caliber. No free fluid or air. Nodes and vessels: No retroperitoneal or mesenteric adenopathy by size criteria. Aorta and inferior vena cava are normal in size. Miscellaneous: No ventral hernias. PELVIS: Genitourinary: Bladder wall thickness is normal. Uterus appears present, no adnexal cystic or solid mass is found. Miscellaneous: No inguinal hernias or adenopathy. Bones: No suspicious bony lesions. No vertebral body compression fractures. IMPRESSION: At least one large gallstone is present within the gallbladder lumen and there is no sign of acute cholecystitis or biliary obstruction. Through the visualized chest abdomen and pelvis no evidence of metastatic disease is found in this patient with reported new diagnosis of endometrial carcinoma. Dictated by: Samy Almeida M.D. on 10/25/2018 at 14:03 Approved by: Samy Almeida M.D. on 10/25/2018 at 14:08
== END ==
PROVIDERS: Family Provider Nurse Practitioner Family; PCP Internal Medicine
DX: C54.1 Malignant neoplasm of endometrium (principal)
CPT/HCPCS: 71260; 74177; Q9967

== ENCOUNTER → 2018-11-05 07:15 | Outpatient (ROUT) | payer OTHER, MEDICAID, SELFPAY ==
[2018-11-05 08:08] LABS: C-Reactive Protein Quant 2.6 mg/dL (<1.0)
[2018-11-05 08:29] LABS: Erythrocyte Sedimentation Rate 53 MM/HR (0-20)
[2018-11-05 08:34] LABS: Thyroid Stimulating Hormone 0.21 uIU/mL (0.47-4.68)
== END ==
PROVIDERS: Family Provider Nurse Practitioner Family; PCP Internal Medicine; Visit Provider Nurse Practitioner Family
DX: M25.50 Pain in unspecified joint (principal)
CPT/HCPCS: 36415; 84443; 85651; 86140

== ENCOUNTER → 2018-11-12 07:36 | Outpatient (ROUT) | payer OTHER, MEDICAID, SELFPAY ==
[2018-11-12 08:14] LABS: Alanine Aminotransferase 25 IU/L (9-52); Albumin 3.8 g/dL (3.5-5.0); Albumin Globulin Ratio 1.2 (1.0-2.8); Alkaline Phosphatase 72 U/L (38-126); Aspartate Aminotransferase 21 IU/L (14-36); BUN Creatinine Ratio 26.7 (6-22); Bilirubin Total 0.6 mg/dL (0.2-1.3); Blood Urea Nitrogen 16 mg/dL (7-17); Calcium 9.4 mg/dL (8.4-10.2); Carbon Dioxide 31 mmol/L (22-32); Chloride 99 mmol/L (98-107); Estimated Glomerular Filt Rate > 60.0 mL/min (>60); Globulin 3.1 g/dL (1.7-4.1); Glucose 136 mg/dL (80-110); HEMOLYSIS < 15 (0-50); Potassium 4.5 mmol/L (3.4-5.1); Sodium 140 mmol/L (137-145); Total Protein 6.9 g/dL (6.3-8.2)
[2018-11-12 08:17] LABS: Hemoglobin A1C% w Est Avg Glu 9.2 % (4.0-6.0)
[2018-11-12 08:26] LABS: Add Manual Diff / Slide Review NO; Basophils Absolute Auto 0 /uL (0-100); Basophils Percent Auto 0.5 % (0-2); Eosinophils Absolute Auto 200 /uL (0-450); Eosinophils Percent Auto 3.2 % (2-4); Hematocrit 40.9 % (36-46); Hemoglobin 13.6 g/dL (12.0-16.0); Lymphocytes Absolute Auto 1600 /uL (1100-4500); Lymphocytes Percent Auto 21.4 % (25-40); Mean Corpuscular HGB Conc 33.2 % (30-36); Mean Corpuscular Hemoglobin 29.6 PG (26-34); Mean Corpuscular Volume 89.2 fL (80-100); Monocytes Absolute Auto 400 /uL (0-900); Neutrophils Absolute Auto 5100 /uL (1500-7000); Neutrophils Percent Auto 68.9 % (50-75); Platelet Count 276 X10^3/uL (150-400); Red Blood Cell Count 4.59 X10^6/uL (4.0-5.2); Red Cell Distribution Width 13.9 % (11.6-14.8); White Blood Cell Count 7.3 X10^3/uL (4.5-11.0)
== END ==
PROVIDERS: Family Provider Nurse Practitioner Family; PCP Internal Medicine; Visit Provider Internal Medicine
DX: C54.1 Malignant neoplasm of endometrium (principal); E11.9 Type 2 diabetes mellitus without complications
CPT/HCPCS: 36415; 80053; 83036; 85025

== ENCOUNTER → 2018-12-03 07:20 | Outpatient (ROUT) | payer OTHER, MEDICAID, SELFPAY ==
[2018-12-03 07:49] LABS: Add Manual Diff / Slide Review NO; Basophils Absolute Auto 100 /uL (0-100); Basophils Percent Auto 0.8 % (0-2); Eosinophils Absolute Auto 200 /uL (0-450); Eosinophils Percent Auto 3.5 % (2-4); Hematocrit 40.2 % (36-46); Hemoglobin 13.6 g/dL (12.0-16.0); Lymphocytes Absolute Auto 1400 /uL (1100-4500); Lymphocytes Percent Auto 21.3 % (25-40); Mean Corpuscular HGB Conc 33.9 % (30-36); Mean Corpuscular Hemoglobin 29.8 PG (26-34); Mean Corpuscular Volume 87.9 fL (80-100); Monocytes Absolute Auto 300 /uL (0-900); Monocytes Percent Auto 4.8 % (3-14); Neutrophils Absolute Auto 4500 /uL (1500-7000); Neutrophils Percent Auto 69.6 % (50-75); Platelet Count 268 X10^3/uL (150-400); Red Blood Cell Count 4.57 X10^6/uL (4.0-5.2); Red Cell Distribution Width 14.1 % (11.6-14.8); White Blood Cell Count 6.5 X10^3/uL (4.5-11.0)
[2018-12-03 08:14] LABS: Blood Urea Nitrogen 14 mg/dL (7-17); Calcium 9.5 mg/dL (8.4-10.2); Carbon Dioxide 34 mmol/L (22-32); Chloride 97 mmol/L (98-107); Estimated Glomerular Filt Rate > 60.0 mL/min (>60); Glucose 127 mg/dL (80-110); HEMOLYSIS < 15 (0-50); Potassium 4.2 mmol/L (3.4-5.1); Sodium 138 mmol/L (137-145)
[2018-12-03 08:47] LABS: Hemoglobin A1C% w Est Avg Glu 8.3 % (4.0-6.0)
== END ==
PROVIDERS: Family Provider Nurse Practitioner Family; PCP Internal Medicine; Visit Provider Internal Medicine
DX: E11.9 Type 2 diabetes mellitus without complications (principal)
CPT/HCPCS: 36415; 80048; 83036; 85025

== ENCOUNTER → 2018-12-09 11:26 | Outpatient (CLI) | payer OTHER, MEDICAID, SELFPAY ==
--- NOTE | 2018-12-09 | DI.US.S_ITS ---
PROCEDURE: US PELVIC COMPLETE INDICATIONS: ABD PAIN/DISTENTION, ENDOMETRIAL CA TECHNIQUE: Real-time scanning was performed of the pelvic organs, with image documentation. Additional endovaginal scanning was necessary due to incomplete visualization of the adnexal and endometrial structures by transabdominal scanning. COMPARISON: [facility], US, US PELVIC COMPLETE, 03/04/2018, 14:56. [facility], CT, CT CHEST ABD PEL W CON, 10/25/2018, 12:01. FINDINGS: Transabdominal scanning: Limited scanning through the kidneys shows no hydronephrosis. No pathologic free abdominal or pelvic fluid. Endovaginal scanning: Uterus: Uterus is normal in size at 11.7 x 5.7 x 6.1 cm. The endometrium measures 31 mm in combined thickness. Increased vascularity noted within the endometrial complex. Ovaries: Not identified. No adnexal masses seen. IMPRESSION: Thickened and hyperemic endometrial complex redemonstrated similar to prior examination in this patient with history of endometrial carcinoma. Continued followup and evaluation is recommended. Dictated by: Avi ASKEW Interpreted: Corina Goldstein MD on 12/09/2018 at 13:48 Approved by: Corina Goldstein M.D. on 12/09/2018 at 14:39
--- NOTE | 2018-12-09 | DI.US.S_ITS ---
PROCEDURE: US ABDOMEN COMPLETE INDICATIONS: ABD PAIN, DISTENSION, ENDOMERTIAL CA TECHNIQUE: Real-time scanning was performed of the abdominal and retroperitoneal organs, with image documentation. COMPARISON: [facility], CT, CT CHEST ABD PEL W CON, 10/25/2018, 12:01. FINDINGS: Quality of visualization is limited by large body habitus and echogenic liver parenchyma. Liver: Liver is not effectively assessed due to the poor visualization of the liver due to large body habitus and diffuse hyperechoic echotexture consistent with fatty infiltration. Gallbladder: The gallbladder contains at least a single large stone is not additional stones, relatively poorly seen due to overlying hepatic echotexture. The calculus visualized measures up to 3.3 cm as suspected from CT scanning 10/25/18. Biliary ducts: Intrahepatic bile ducts are non-dilated. Extrahepatic bile duct caliber measures 6.0 mm. Normal is 6-7 mm or less in diameter, or 10 mm or less post-cholecystectomy. Pancreas: Visualized portions of the pancreas are sonographically normal. Spleen: Spleen is normal in size and homogeneous in echotexture. Kidneys: Kidneys are normal in size and echotexture. Right kidney measures 10.8 cm long; left kidney measures 10.2 cm long. No hydronephrosis or nephrolithiasis. No solid masses. Aorta: Visualized aorta is normal in caliber at less than 3 cm. Iliacs: Poorly seen due to body habitus and overlying bowel gas. IVC: Poorly seen due to bowel gas and body habitus. Miscellaneous: No free abdominal fluid. IMPRESSION: Limited quality visualization through large body habitus and overlying bowel gas, and hepatic hyperechoic echotexture. Depending on clinical status followup by CT scanning may be warranted. A large 3.3 cm calculus occupies at least a portion of the gallbladder lumen and additional partially visualized calculi may be present. However, no biliary distention or evidence of acute cholecystitis. Dictated by: Samy Almeida M.D. on 12/09/2018 at 13:12 Approved by: Samy Almeida M.D. on 12/09/2018 at 13:15
== END ==
PROVIDERS: Family Provider Nurse Practitioner Family; PCP Internal Medicine; Visit Provider Internal Medicine
DX: C54.1 Malignant neoplasm of endometrium (principal); R10.9 Unspecified abdominal pain; R14.0 Abdominal distension (gaseous); K80.20 Calculus of gallbladder without cholecystitis without obstruction
CPT/HCPCS: 76700; 76830; 76856

== ENCOUNTER → 2019-01-15 12:30 | Outpatient (ROUT) | payer OTHER, MEDICAID, SELFPAY ==
[2019-01-15 12:38] LABS: Add Manual Diff / Slide Review NO; Basophils Absolute Auto 0 /uL (0-100); Basophils Percent Auto 0.4 % (0-2); Eosinophils Absolute Auto 300 /uL (0-450); Eosinophils Percent Auto 2.3 % (2-4); Hematocrit 37.4 % (36-46); Hemoglobin 12.4 g/dL (12.0-16.0); Lymphocytes Absolute Auto 1000 /uL (1100-4500); Lymphocytes Percent Auto 8.2 % (25-40); Mean Corpuscular HGB Conc 33.2 % (30-36); Mean Corpuscular Hemoglobin 29.6 PG (26-34); Monocytes Absolute Auto 600 /uL (0-900); Monocytes Percent Auto 4.6 % (3-14); Neutrophils Absolute Auto 10100 /uL (1500-7000); Neutrophils Percent Auto 84.5 % (50-75); Platelet Count 415 X10^3/uL (150-400); Red Cell Distribution Width 14.2 % (11.6-14.8)
[2019-01-15 13:36] LABS: BUN Creatinine Ratio 22.9 (6-22); Blood Urea Nitrogen 16 mg/dL (7-17); Calcium 9.5 mg/dL (8.4-10.2); Carbon Dioxide 34 mmol/L (22-32); Chloride 91 mmol/L (98-107); Estimated Glomerular Filt Rate > 60.0 mL/min (>60); Glucose 157 mg/dL (80-110); Sodium 137 mmol/L (137-145)
[2019-01-15 13:47] LABS: HEMOLYSIS 96 (0-50)
[2019-01-15 13:48] LABS: Potassium 4.5 mmol/L (3.4-5.1)
== END ==
PROVIDERS: Family Provider Nurse Practitioner Family; PCP Internal Medicine; Visit Provider Internal Medicine
DX: R50.9 Fever, unspecified (principal); Z98.890 Other specified postprocedural states
CPT/HCPCS: 80048; 85025

== ENCOUNTER → 2019-01-24 13:30 | Outpatient (CLI) | payer OTHER, MEDICAID, SELFPAY | PROVIDERS: Family Provider Nurse Practitioner Family; PCP Internal Medicine; Visit Provider Family Medicine | DX: E11.628 Type 2 diabetes mellitus with other skin complications (principal); T81.31XA Disruption of external operation (surgical) wound, not elsewhere classified, initial encounter; E66.01 Morbid (severe) obesity due to excess calories; C54.1 Malignant neoplasm of endometrium; I25.10 Atherosclerotic heart disease of native coronary artery without angina pectoris; Z79.4 Long term (current) use of insulin | CPT/HCPCS: 99203; 99213 ==

== ENCOUNTER → 2019-01-26 16:15 | Outpatient (ROUT) | payer OTHER, MEDICAID, SELFPAY ==
[2019-01-26 19:04] LABS: Clostridium Difficile Tox PCR Negative for C. diff
== END ==
PROVIDERS: Family Provider Nurse Practitioner Family; PCP Internal Medicine; Visit Provider Internal Medicine
DX: A04.72 Enterocolitis due to Clostridium difficile, not specified as recurrent (principal); R19.7 Diarrhea, unspecified
CPT/HCPCS: 87493

== ENCOUNTER → 2019-01-28 14:34 | Outpatient (ROUT) | payer OTHER, MEDICAID, SELFPAY | PROVIDERS: Family Provider Nurse Practitioner Family; PCP Internal Medicine; Visit Provider Internal Medicine | DX: R89.5 Abnormal microbiological findings in specimens from other organs, systems and tissues (principal) | CPT/HCPCS: 87070; 87075; 87205 ==

== ENCOUNTER → 2019-01-31 14:18 | Outpatient (CLI) | payer OTHER, MEDICAID, SELFPAY | PROVIDERS: Family Provider Nurse Practitioner Family; PCP Internal Medicine; Visit Provider Family Medicine | DX: E11.628 Type 2 diabetes mellitus with other skin complications (principal); S31.105A Unspecified open wound of abdominal wall, periumbilic region without penetration into peritoneal cavity, initial encounter; T81.31XA Disruption of external operation (surgical) wound, not elsewhere classified, initial encounter; E66.01 Morbid (severe) obesity due to excess calories; C54.1 Malignant neoplasm of endometrium; I25.10 Atherosclerotic heart disease of native coronary artery without angina pectoris | CPT/HCPCS: 11042; 87070; 87075; 87205 ==

== ENCOUNTER → 2019-02-05 14:00 | Outpatient (CLI) | payer OTHER, MEDICAID, SELFPAY | PROVIDERS: Family Provider Nurse Practitioner Family; PCP Internal Medicine; Visit Provider Family Medicine | DX: E11.628 Type 2 diabetes mellitus with other skin complications (principal); T81.31XA Disruption of external operation (surgical) wound, not elsewhere classified, initial encounter; S31.105A Unspecified open wound of abdominal wall, periumbilic region without penetration into peritoneal cavity, initial encounter; C54.1 Malignant neoplasm of endometrium; E66.01 Morbid (severe) obesity due to excess calories | CPT/HCPCS: 11042; 99212 ==

== ENCOUNTER → 2019-02-06 08:35 | Outpatient (CLI) | payer OTHER, MEDICAID, SELFPAY | PROVIDERS: Family Provider Nurse Practitioner Family; PCP Internal Medicine; Visit Provider Family Medicine | DX: E11.628 Type 2 diabetes mellitus with other skin complications (principal); T81.31XA Disruption of external operation (surgical) wound, not elsewhere classified, initial encounter; S31.105A Unspecified open wound of abdominal wall, periumbilic region without penetration into peritoneal cavity, initial encounter; E66.01 Morbid (severe) obesity due to excess calories; C54.1 Malignant neoplasm of endometrium | CPT/HCPCS: 99212; 99213 ==

== ENCOUNTER → 2019-02-12 08:56 | Outpatient (CLI) | payer OTHER, MEDICAID, SELFPAY | PROVIDERS: Family Provider Nurse Practitioner Family; PCP Internal Medicine; Visit Provider Family Medicine | DX: E11.628 Type 2 diabetes mellitus with other skin complications (principal); T81.31XA Disruption of external operation (surgical) wound, not elsewhere classified, initial encounter; S31.105A Unspecified open wound of abdominal wall, periumbilic region without penetration into peritoneal cavity, initial encounter; C54.1 Malignant neoplasm of endometrium; E66.01 Morbid (severe) obesity due to excess calories; I25.10 Atherosclerotic heart disease of native coronary artery without angina pectoris | CPT/HCPCS: 97605; 99213 ==

== ENCOUNTER → 2019-02-14 09:15 | Outpatient (CLI) | payer OTHER, MEDICAID, SELFPAY | PROVIDERS: Family Provider Nurse Practitioner Family; PCP Internal Medicine; Visit Provider Family Medicine | DX: S31.109A Unspecified open wound of abdominal wall, unspecified quadrant without penetration into peritoneal cavity, initial encounter (principal) | CPT/HCPCS: 97605 ==

== ENCOUNTER → 2019-02-18 14:22 | Outpatient (CLI) | payer OTHER, MEDICAID, SELFPAY | PROVIDERS: Family Provider Nurse Practitioner Family; PCP Internal Medicine; Visit Provider Family Medicine | DX: E11.622 Type 2 diabetes mellitus with other skin ulcer (principal); T81.31XA Disruption of external operation (surgical) wound, not elsewhere classified, initial encounter; E66.01 Morbid (severe) obesity due to excess calories; C54.1 Malignant neoplasm of endometrium | CPT/HCPCS: 11042; 97605 ==

== ENCOUNTER → 2019-02-21 13:57 | Outpatient (CLI) | payer OTHER, MEDICAID, SELFPAY | PROVIDERS: Family Provider Nurse Practitioner Family; PCP Internal Medicine; Visit Provider Family Medicine | DX: S31.109A Unspecified open wound of abdominal wall, unspecified quadrant without penetration into peritoneal cavity, initial encounter (principal) | CPT/HCPCS: 97605 ==

== ENCOUNTER → 2019-02-25 15:00 | Outpatient (CLI) | payer OTHER, MEDICAID, SELFPAY | PROVIDERS: Family Provider Nurse Practitioner Family; PCP Internal Medicine; Visit Provider Family Medicine | DX: E11.628 Type 2 diabetes mellitus with other skin complications (principal); T81.31XA Disruption of external operation (surgical) wound, not elsewhere classified, initial encounter; S31.105A Unspecified open wound of abdominal wall, periumbilic region without penetration into peritoneal cavity, initial encounter; E66.01 Morbid (severe) obesity due to excess calories; C54.1 Malignant neoplasm of endometrium | CPT/HCPCS: 97605; 99213 ==

== ENCOUNTER → 2019-02-26 00:32 | Outpatient (ROUT) | payer OTHER, MEDICAID, SELFPAY ==
[2019-02-26 03:08] LABS: Clostridium difficile toxin AB Not Detected (Not Detect); Enteroaggregative E.coli Not Detected (Not Detect); Enteropathogenic E.coli Not Detected (Not Detect); Enterotoxigenic E.coli It/st Not Detected (Not Detect); Plesiomonsa shigelloides Not Detected (Not Detect); Salmonella Not Detected (Not Detect); Shiga-like toxin-prod E.coli Not Detected (Not Detect); Vibrio Not Detected (Not Detect); Vibrio cholerae Not Detected (Not Detect); Yersinia enterocolitica Not Detected (Not Detect)
[2019-02-26 03:09] LABS: Adenovirus F 40/41 Not Detected (Not Detect); Astrovirus Not Detected (Not Detect); Cryptosporidium Not Detected (Not Detect); Cyclospora cayetanensis Not Detected (Not Detect); Entamoeba histolytica Not Detected (Not Detect); Giardia lamblia Not Detected (Not Detect); Norovirus GI/GII Not Detected (Not Detect); Rotavirus A Not Detected (Not Detect); Sapovirus Not Detected (Not Detect); Shigella/Enteroinvasive E.coli Not Detected (Not Detect)
[2019-02-26 23:32] LABS: Campylobacter Not Detected (Not Detect)
== END ==
PROVIDERS: Family Provider Nurse Practitioner Family; PCP Internal Medicine; Visit Provider Internal Medicine
DX: R19.7 Diarrhea, unspecified (principal)
CPT/HCPCS: 87507

== ENCOUNTER → 2019-03-04 08:49 | Outpatient (CLI) | payer OTHER, MEDICAID, SELFPAY | PROVIDERS: Family Provider Nurse Practitioner Family; PCP Internal Medicine; Visit Provider Family Medicine | DX: E11.628 Type 2 diabetes mellitus with other skin complications (principal); T81.31XA Disruption of external operation (surgical) wound, not elsewhere classified, initial encounter; S31.105A Unspecified open wound of abdominal wall, periumbilic region without penetration into peritoneal cavity, initial encounter; C54.1 Malignant neoplasm of endometrium; E66.01 Morbid (severe) obesity due to excess calories | CPT/HCPCS: 11042 ==

== ENCOUNTER → 2019-03-11 08:50 | Outpatient (CLI) | payer OTHER, MEDICAID, SELFPAY | PROVIDERS: Family Provider Nurse Practitioner Family; PCP Internal Medicine; Visit Provider Family Medicine | DX: E11.628 Type 2 diabetes mellitus with other skin complications (principal); T81.31XA Disruption of external operation (surgical) wound, not elsewhere classified, initial encounter; S31.105A Unspecified open wound of abdominal wall, periumbilic region without penetration into peritoneal cavity, initial encounter; E66.01 Morbid (severe) obesity due to excess calories; C54.1 Malignant neoplasm of endometrium | CPT/HCPCS: 99213 ==

== ENCOUNTER → 2019-03-18 09:40 | Outpatient (CLI) | payer OTHER, MEDICAID, SELFPAY | PROVIDERS: Family Provider Nurse Practitioner Family; PCP Internal Medicine; Visit Provider Family Medicine | DX: E11.628 Type 2 diabetes mellitus with other skin complications (principal); T81.31XD Disruption of external operation (surgical) wound, not elsewhere classified, subsequent encounter; S31.000D Unspecified open wound of lower back and pelvis without penetration into retroperitoneum, subsequent encounter; Z68.43 Body mass index [BMI] 50.0-59.9, adult; E66.01 Morbid (severe) obesity due to excess calories | CPT/HCPCS: 99212; 99213 ==

== ENCOUNTER → 2019-05-22 07:17 | Outpatient (ROUT) | payer OTHER, MEDICAID, SELFPAY ==
[2019-05-22 08:01] LABS: Add Manual Diff / Slide Review NO; Basophils Absolute Auto 0 /uL (0-100); Basophils Percent Auto 0.6 % (0-2); Eosinophils Absolute Auto 100 /uL (0-450); Eosinophils Percent Auto 3.1 % (2-4); Hematocrit 35.5 % (36-46); Lymphocytes Absolute Auto 500 /uL (1100-4500); Lymphocytes Percent Auto 12.3 % (25-40); Mean Corpuscular HGB Conc 33.9 % (30-36); Mean Corpuscular Hemoglobin 29.5 PG (26-34); Monocytes Absolute Auto 300 /uL (0-900); Monocytes Percent Auto 6.4 % (3-14); Neutrophils Absolute Auto 3400 /uL (1500-7000); Neutrophils Percent Auto 77.6 % (50-75); Platelet Count 189 X10^3/uL (150-400); Red Blood Cell Count 4.08 X10^6/uL (4.0-5.2); Red Cell Distribution Width 14.8 % (11.6-14.8); White Blood Cell Count 4.4 X10^3/uL (4.5-11.0)
[2019-05-22 08:13] LABS: Alanine Aminotransferase 19 IU/L (<35); Albumin 3.8 g/dL (3.5-5.0); Albumin Globulin Ratio 1.1 (1.0-2.8); Alkaline Phosphatase 60 U/L (38-126); Aspartate Aminotransferase 24 IU/L (14-36); BUN Creatinine Ratio 21.3 (6-22); Bilirubin Total 0.4 mg/dL (0.2-1.3); Blood Urea Nitrogen 17 mg/dL (7-17); Carbon Dioxide 32 mmol/L (22-32); Chloride 98 mmol/L (98-107); Cholesterol 172 mg/dL (140-199); Estimated Glomerular Filt Rate > 60.0 mL/min (>60); Globulin 3.4 g/dL (1.7-4.1); Glucose 108 mg/dL (80-110); HDL Cholesterol 40 mg/dL (40-60); HEMOLYSIS < 15 (0-50); LDL Cholesterol Calculated 107 mg/dL (<100); Potassium 3.8 mmol/L (3.4-5.1); Sodium 139 mmol/L (137-145); Total Protein 7.2 g/dL (6.3-8.2); Triglycerides 127 mg/dL (35-150)
[2019-05-22 08:17] LABS: Hemoglobin A1C% w Est Avg Glu 6.8 % (4.0-6.0)
== END ==
PROVIDERS: Family Provider Nurse Practitioner Family; PCP Internal Medicine; Visit Provider Internal Medicine
DX: I25.10 Atherosclerotic heart disease of native coronary artery without angina pectoris (principal); E78.5 Hyperlipidemia, unspecified; E03.9 Hypothyroidism, unspecified; E11.9 Type 2 diabetes mellitus without complications
CPT/HCPCS: 36415; 80053; 80061; 83036; 84443; 85025

== ENCOUNTER → 2019-08-24 23:17 | Outpatient (ROUT) | payer OTHER, MEDICAID, SELFPAY ==
[2019-08-25 17:56] LABS: COVID19 Sendout Not Detected (Not Detect)
== END ==
PROVIDERS: Family Provider Nurse Practitioner Family; PCP Internal Medicine; Visit Provider Nurse Practitioner Family
DX: R50.9 Fever, unspecified (principal)
CPT/HCPCS: 87635

== ENCOUNTER → 2019-09-02 07:37 | Outpatient (ROUT) | payer OTHER, MEDICAID, SELFPAY ==
[2019-09-02 07:52] LABS: Add Manual Diff / Slide Review NO; Basophils Absolute Auto 100 /uL (0-100); Eosinophils Absolute Auto 200 /uL (0-450); Eosinophils Percent Auto 4.3 % (2-4); Hematocrit 35.2 % (36-46); Lymphocytes Absolute Auto 500 /uL (1100-4500); Lymphocytes Percent Auto 9.1 % (25-40); Mean Corpuscular HGB Conc 34.2 % (30-36); Mean Corpuscular Hemoglobin 30.9 PG (26-34); Mean Corpuscular Volume 90.5 fL (80-100); Monocytes Absolute Auto 300 /uL (0-900); Monocytes Percent Auto 6.3 % (3-14); Neutrophils Absolute Auto 4400 /uL (1500-7000); Neutrophils Percent Auto 79.3 % (50-75); Platelet Count 248 X10^3/uL (150-400); Red Blood Cell Count 3.89 X10^6/uL (4.0-5.2); Red Cell Distribution Width 13.6 % (11.6-14.8); White Blood Cell Count 5.5 X10^3/uL (4.5-11.0)
[2019-09-02 07:58] LABS: Hemoglobin A1C% w Est Avg Glu 7.9 % (4.0-6.0)
[2019-09-02 08:06] LABS: BUN Creatinine Ratio 23.8 (6-22); Blood Urea Nitrogen 19 mg/dL (7-17); Carbon Dioxide 34 mmol/L (22-32); Chloride 99 mmol/L (98-107); Estimated Glomerular Filt Rate > 60.0 mL/min (>60); Glucose 140 mg/dL (80-110); HEMOLYSIS < 15 (0-50); Potassium 3.9 mmol/L (3.4-5.1); Sodium 140 mmol/L (137-145)
== END ==
PROVIDERS: Family Provider Nurse Practitioner Family; PCP Internal Medicine; Visit Provider Nurse Practitioner Family
DX: E11.9 Type 2 diabetes mellitus without complications (principal); Z86.2 Personal history of diseases of the blood and blood-forming organs and certain disorders involving the immune mechanism
CPT/HCPCS: 36415; 80048; 83036; 85025

== ENCOUNTER → 2019-11-20 07:42 | Outpatient (ROUT) | payer OTHER, MEDICAID, SELFPAY ==
[2019-11-20 08:35] LABS: Add Manual Diff / Slide Review NO; Basophils Absolute Auto 0 /uL (0-100); Basophils Percent Auto 0.8 % (0-2); Eosinophils Absolute Auto 200 /uL (0-450); Eosinophils Percent Auto 3.6 % (2-4); Hematocrit 37.7 % (36-46); Hemoglobin 12.4 g/dL (12.0-16.0); Lymphocytes Absolute Auto 500 /uL (1100-4500); Lymphocytes Percent Auto 10.6 % (25-40); Mean Corpuscular HGB Conc 32.9 % (30-36); Mean Corpuscular Hemoglobin 29.1 PG (26-34); Mean Corpuscular Volume 88.4 fL (80-100); Monocytes Absolute Auto 300 /uL (0-900); Monocytes Percent Auto 6.9 % (3-14); Neutrophils Absolute Auto 3800 /uL (1500-7000); Neutrophils Percent Auto 78.1 % (50-75); Platelet Count 251 X10^3/uL (150-400); Red Blood Cell Count 4.26 X10^6/uL (4.0-5.2); Red Cell Distribution Width 14.1 % (11.6-14.8); White Blood Cell Count 4.9 X10^3/uL (4.5-11.0)
[2019-11-20 09:38] LABS: Alanine Aminotransferase 21 IU/L (<35); Albumin 3.8 g/dL (3.5-5.0); Albumin Globulin Ratio 1.2 (1.0-2.8); Alkaline Phosphatase 65 U/L (38-126); Aspartate Aminotransferase 26 IU/L (14-36); BUN Creatinine Ratio 21.3 (6-22); Bilirubin Total 0.4 mg/dL (0.2-1.3); Blood Urea Nitrogen 16 mg/dL (7-17); Carbon Dioxide 35 mmol/L (22-32); Chloride 98 mmol/L (98-107); Cholesterol 175 mg/dL (140-199); Estimated Glomerular Filt Rate > 60.0 mL/min (>60); Globulin 3.3 g/dL (1.7-4.1); Glucose 136 mg/dL (80-110); HDL Cholesterol 41 mg/dL (40-60); HEMOLYSIS < 15 (0-50); LDL Cholesterol Calculated 110 mg/dL (<100); Potassium 3.6 mmol/L (3.4-5.1); Sodium 140 mmol/L (137-145); Total Protein 7.1 g/dL (6.3-8.2); Triglycerides 121 mg/dL (35-150)
[2019-11-20 10:06] LABS: Thyroid Stimulating Hormone 1.51 uIU/mL (0.47-4.68)
== END ==
PROVIDERS: Family Provider Nurse Practitioner Family; PCP Internal Medicine; Visit Provider Internal Medicine
DX: E03.9 Hypothyroidism, unspecified (principal); E78.5 Hyperlipidemia, unspecified; E11.9 Type 2 diabetes mellitus without complications; Z79.899 Other long term (current) drug therapy
CPT/HCPCS: 36415; 80053; 80061; 84443; 85025

== ENCOUNTER → 2020-02-05 07:37 | Outpatient (ROUT) | payer OTHER, MEDICAID, SELFPAY ==
[2020-02-05 08:56] LABS: Hemoglobin A1C% w Est Avg Glu 7.9 % (4.0-6.0)
== END ==
PROVIDERS: Family Provider Nurse Practitioner Family; PCP Internal Medicine; Visit Provider Nurse Practitioner Gerontology
DX: E11.9 Type 2 diabetes mellitus without complications (principal)
CPT/HCPCS: 36415; 83036

== ENCOUNTER → 2020-03-18 07:31 | Outpatient (ROUT) | payer OTHER, MEDICAID, SELFPAY ==
[2020-03-18 08:18] LABS: Add Manual Diff / Slide Review NO; Basophils Absolute Auto 100 /uL (0-100); Eosinophils Absolute Auto 200 /uL (0-450); Eosinophils Percent Auto 2.4 % (2-4); Hematocrit 36.6 % (36-46); Hemoglobin 12.1 g/dL (12.0-16.0); Lymphocytes Absolute Auto 800 /uL (1100-4500); Lymphocytes Percent Auto 11.3 % (25-40); Mean Corpuscular Hemoglobin 29.2 PG (26-34); Mean Corpuscular Volume 88.7 fL (80-100); Monocytes Absolute Auto 400 /uL (0-900); Monocytes Percent Auto 6.4 % (3-14); Neutrophils Absolute Auto 5300 /uL (1500-7000); Neutrophils Percent Auto 78.9 % (50-75); Platelet Count 233 X10^3/uL (150-400); Red Blood Cell Count 4.12 X10^6/uL (4.0-5.2); Red Cell Distribution Width 13.9 % (11.6-14.8); White Blood Cell Count 6.8 X10^3/uL (4.5-11.0)
[2020-03-18 08:30] LABS: D Dimer 554 ng/mL (<230)
[2020-03-18 08:34] LABS: Alanine Aminotransferase 17 IU/L (<35); Albumin 3.8 g/dL (3.5-5.0); Albumin Globulin Ratio 1.1 (1.0-2.8); Alkaline Phosphatase 66 U/L (38-126); Aspartate Aminotransferase 18 IU/L (14-36); BUN Creatinine Ratio 24.3 (6-22); Bilirubin Total 0.5 mg/dL (0.2-1.3); Blood Urea Nitrogen 17 mg/dL (7-17); Calcium 8.6 mg/dL (8.4-10.2); Carbon Dioxide 37 mmol/L (22-32); Chloride 98 mmol/L (98-107); Estimated Glomerular Filt Rate > 60.0 mL/min (>60); Globulin 3.4 g/dL (1.7-4.1); Glucose 158 mg/dL (80-110); HEMOLYSIS < 15 (0-50); Lipase 52 U/L (23-300); Sodium 138 mmol/L (137-145); Total Protein 7.2 g/dL (6.3-8.2)
== END ==
PROVIDERS: Family Provider Nurse Practitioner Family; PCP Internal Medicine; Visit Provider Internal Medicine
DX: R07.9 Chest pain, unspecified (principal); R10.9 Unspecified abdominal pain
CPT/HCPCS: 36415; 80053; 83690; 85025; 85379

== ENCOUNTER → 2020-03-22 10:36 | Outpatient (CLI) | payer OTHER, MEDICAID, SELFPAY ==
--- NOTE | 2020-03-22 | DI.US.S_ITS ---
PROCEDURE: US ABDOMEN LIMITED INDICATIONS: RIGHT UPPER QUADRANT PAIN TECHNIQUE: Real-time focused scanning was performed of the abdomen, with image documentation. COMPARISON: CT abdomen/pelvis 09/19/19. FINDINGS: The liver measures 22.2 cm craniocaudad and demonstrates severe increased echotexture of the liver consistent with fatty infiltration. The gallbladder contains 3 nonobstructive calculi the largest of which measures up to 1.8 cm. Gallbladder wall thickness is normal at 2.1 mm, and no adjacent free fluid or focal tenderness during sonographic palpation is seen. The bile ducts are normal in caliber, the pancreas visualized appears normal. IMPRESSION: Prominent fatty infiltration throughout the enlarged liver is the likely etiology of right upper quadrant abdominal pain. No sign biliary obstruction but there are 3 nonobstructive moderately large gallstones within the gallbladder lumen. The gallbladder wall, however, is not thickened or hyperemic. Dictated by: Samy Almeida M.D. on 03/23/2020 at 12:30 Approved by: Samy Almeida M.D. on 03/23/2020 at 12:32
== END ==
PROVIDERS: Family Provider Nurse Practitioner Family; PCP Internal Medicine; Referring Provider Internal Medicine; Visit Provider Internal Medicine
DX: R10.11 Right upper quadrant pain (principal)
CPT/HCPCS: 76705

== ENCOUNTER → 2020-06-08 08:30 | Outpatient (ROUT) | payer OTHER, MEDICAID, SELFPAY ==
[2020-06-08 08:48] LABS: Add Manual Diff / Slide Review NO; Basophils Absolute Auto 0 /uL (0-100); Basophils Percent Auto 0.8 % (0-2); Eosinophils Absolute Auto 100 /uL (0-450); Eosinophils Percent Auto 3.1 % (2-4); Hematocrit 41.6 % (36-46); Hemoglobin 13.5 g/dL (12.0-16.0); Lymphocytes Absolute Auto 600 /uL (1100-4500); Mean Corpuscular HGB Conc 32.5 % (30-36); Mean Corpuscular Hemoglobin 28.5 PG (26-34); Mean Corpuscular Volume 87.8 fL (80-100); Monocytes Absolute Auto 300 /uL (0-900); Monocytes Percent Auto 6.8 % (3-14); Neutrophils Absolute Auto 3600 /uL (1500-7000); Neutrophils Percent Auto 76.3 % (50-75); Platelet Count 269 X10^3/uL (150-400); Red Blood Cell Count 4.73 X10^6/uL (4.0-5.2); Red Cell Distribution Width 14.5 % (11.6-14.8); White Blood Cell Count 4.7 X10^3/uL (4.5-11.0)
[2020-06-08 09:02] LABS: Blood Urea Nitrogen 15 mg/dL (7-17); Calcium 9.5 mg/dL (8.4-10.2); Carbon Dioxide 36 mmol/L (22-32); Chloride 98 mmol/L (98-107); Estimated Glomerular Filt Rate > 60.0 mL/min (>60); Glucose 147 mg/dL (80-110); HEMOLYSIS < 15 (0-50); Potassium 3.8 mmol/L (3.4-5.1); Sodium 139 mmol/L (137-145)
[2020-06-08 09:05] LABS: Hemoglobin A1C% w Est Avg Glu 8.2 % (4.0-6.0)
[2020-06-08 09:36] LABS: Thyroid Stimulating Hormone 0.967 uIU/mL (0.47-4.68)
== END ==
PROVIDERS: Family Provider Nurse Practitioner Family; PCP Internal Medicine; Visit Provider Internal Medicine
DX: R63.4 Abnormal weight loss (principal); E11.9 Type 2 diabetes mellitus without complications
CPT/HCPCS: 36415; 80048; 83036; 84443; 85025

== ENCOUNTER → 2020-09-07 08:03 | Outpatient (ROUT) | payer OTHER, MEDICAID, SELFPAY ==
[2020-09-07 08:38] LABS: Add Manual Diff / Slide Review NO; Basophils Absolute Auto 0 /uL (0-100); Basophils Percent Auto 0.7 % (0-2); Eosinophils Absolute Auto 200 /uL (0-450); Eosinophils Percent Auto 2.6 % (2-4); Hematocrit 41.2 % (36-46); Hemoglobin 13.5 g/dL (12.0-16.0); Lymphocytes Absolute Auto 1000 /uL (1100-4500); Lymphocytes Percent Auto 13.5 % (25-40); Mean Corpuscular HGB Conc 32.9 % (30-36); Mean Corpuscular Hemoglobin 28.9 PG (26-34); Mean Corpuscular Volume 87.9 fL (80-100); Monocytes Absolute Auto 400 /uL (0-900); Monocytes Percent Auto 5.6 % (3-14); Neutrophils Absolute Auto 5500 /uL (1500-7000); Neutrophils Percent Auto 77.6 % (50-75); Platelet Count 284 X10^3/uL (150-400); Red Blood Cell Count 4.68 X10^6/uL (4.0-5.2); Red Cell Distribution Width 14.1 % (11.6-14.8); White Blood Cell Count 7.1 X10^3/uL (4.5-11.0)
[2020-09-07 08:53] LABS: BUN Creatinine Ratio 24.3 (6-22); Blood Urea Nitrogen 18 mg/dL (7-17); Calcium 10.1 mg/dL (8.4-10.2); Carbon Dioxide 32 mmol/L (22-32); Chloride 96 mmol/L (98-107); Cholesterol 221 mg/dL (140-199); Estimated Glomerular Filt Rate > 60.0 mL/min (>60); Glucose 180 mg/dL (80-110); HDL Cholesterol 42 mg/dL (40-60); HEMOLYSIS < 15 (0-50); LDL Cholesterol Calculated 145 mg/dL (<100); Potassium 3.7 mmol/L (3.4-5.1); Sodium 138 mmol/L (137-145); Triglycerides 169 mg/dL (35-150)
[2020-09-07 10:07] LABS: Thyroid Stimulating Hormone 2.12 uIU/mL (0.47-4.68)
[2020-09-07 11:13] LABS: Hemoglobin A1C% w Est Avg Glu 8.8 % (4.0-6.0)
== END ==
PROVIDERS: Family Provider Nurse Practitioner Family; PCP Internal Medicine; Visit Provider Nurse Practitioner Family
DX: I10 Essential (primary) hypertension (principal); E78.5 Hyperlipidemia, unspecified; E03.9 Hypothyroidism, unspecified; E11.65 Type 2 diabetes mellitus with hyperglycemia
CPT/HCPCS: 36415; 80048; 80061; 83036; 84443; 85025

== ENCOUNTER → 2020-11-23 07:39 | Outpatient (ROUT) | payer OTHER, MEDICAID, SELFPAY ==
[2020-11-23 07:54] LABS: Add Manual Diff / Slide Review NO; Basophils Absolute Auto 0 /uL (0-100); Basophils Percent Auto 0.6 % (0-2); Eosinophils Absolute Auto 200 /uL (0-450); Eosinophils Percent Auto 2.6 % (2-4); Hematocrit 38.3 % (36-46); Hemoglobin 12.5 g/dL (12.0-16.0); Lymphocytes Absolute Auto 800 /uL (1100-4500); Lymphocytes Percent Auto 11.1 % (25-40); Mean Corpuscular HGB Conc 32.6 % (30-36); Mean Corpuscular Hemoglobin 28.3 PG (26-34); Mean Corpuscular Volume 86.7 fL (80-100); Monocytes Absolute Auto 400 /uL (0-900); Monocytes Percent Auto 5.9 % (3-14); Neutrophils Absolute Auto 5500 /uL (1500-7000); Neutrophils Percent Auto 79.8 % (50-75); Platelet Count 391 X10^3/uL (150-400); Red Blood Cell Count 4.41 X10^6/uL (4.0-5.2); Red Cell Distribution Width 14.1 % (11.6-14.8); White Blood Cell Count 6.9 X10^3/uL (4.5-11.0)
[2020-11-23 08:18] LABS: Alanine Aminotransferase 21 IU/L (<35); Albumin 3.9 g/dL (3.5-5.0); Alkaline Phosphatase 103 U/L (38-126); Aspartate Aminotransferase 22 IU/L (14-36); Bilirubin Total 0.4 mg/dL (0.2-1.3); Blood Urea Nitrogen 17 mg/dL (7-17); Calcium 9.5 mg/dL (8.4-10.2); Carbon Dioxide 37 mmol/L (22-32); Chloride 95 mmol/L (98-107); Estimated Glomerular Filt Rate > 60.0 mL/min (>60); Globulin 3.9 g/dL (1.7-4.1); Glucose 147 mg/dL (80-110); HEMOLYSIS < 15 (0-50); Lipase 64 U/L (23-300); Potassium 3.8 mmol/L (3.4-5.1); Sodium 139 mmol/L (137-145); Total Protein 7.8 g/dL (6.3-8.2)
== END ==
PROVIDERS: Family Provider Nurse Practitioner Family; PCP Internal Medicine; Visit Provider Nurse Practitioner Family
DX: R10.9 Unspecified abdominal pain (principal)
CPT/HCPCS: 36415; 80053; 83690; 85025

== ENCOUNTER → 2020-12-07 07:53 | Outpatient (ROUT) | payer OTHER, MEDICAID, SELFPAY ==
[2020-12-07 09:02] LABS: Hemoglobin A1C% w Est Avg Glu 8.8 % (4.0-6.0)
[2020-12-07 09:11] LABS: BUN Creatinine Ratio 24.7 (6-22); Blood Urea Nitrogen 19 mg/dL (7-17); Calcium 9.1 mg/dL (8.4-10.2); Carbon Dioxide 35 mmol/L (22-32); Chloride 96 mmol/L (98-107); Estimated Glomerular Filt Rate > 60.0 mL/min (>60); Glucose 186 mg/dL (80-110); HEMOLYSIS < 15 (0-50); Potassium 3.9 mmol/L (3.4-5.1); Sodium 139 mmol/L (137-145)
== END ==
PROVIDERS: Family Provider Nurse Practitioner Family; PCP Internal Medicine; Visit Provider Nurse Practitioner Family
DX: E11.9 Type 2 diabetes mellitus without complications (principal)
CPT/HCPCS: 36415; 80048; 83036

== ENCOUNTER → 2021-03-08 07:06 | Outpatient (ROUT) | payer OTHER, MEDICAID, SELFPAY ==
[2021-03-08 07:32] LABS: Alanine Aminotransferase 18 IU/L (<35); Albumin 4.1 g/dL (3.5-5.0); Albumin Globulin Ratio 1.3 (1.0-2.8); Alkaline Phosphatase 59 U/L (38-126); Aspartate Aminotransferase 24 IU/L (14-36); BUN Creatinine Ratio 31.3 (6-22); Bilirubin Total 0.5 mg/dL (0.2-1.3); Blood Urea Nitrogen 21 mg/dL (7-17); Calcium 9.1 mg/dL (8.4-10.2); Carbon Dioxide 30 mmol/L (22-32); Chloride 98 mmol/L (98-107); Cholesterol 176 mg/dL (140-199); Estimated Glomerular Filt Rate > 60.0 mL/min (>60); Globulin 3.1 g/dL (1.7-4.1); Glucose 187 mg/dL (80-110); HDL Cholesterol 46 mg/dL (40-60); HEMOLYSIS 47 (0-50); LDL Cholesterol Calculated 107 mg/dL (<100); Potassium 4.5 mmol/L (3.4-5.1); Sodium 138 mmol/L (137-145); Total Protein 7.2 g/dL (6.3-8.2); Triglycerides 117 mg/dL (35-150)
== END ==
PROVIDERS: Family Provider Nurse Practitioner Family; PCP Internal Medicine; Visit Provider Nurse Practitioner Family
DX: E11.9 Type 2 diabetes mellitus without complications (principal); E78.00 Pure hypercholesterolemia, unspecified
CPT/HCPCS: 36415; 80053; 80061

== ENCOUNTER → 2021-03-15 09:38 | Outpatient (ROUT) | payer OTHER, SELFPAY ==
[2021-03-15 11:08] LABS: COVID19 - ADMIT (NP swab/PCR) POSITIVE (Negative)
== END ==
PROVIDERS: Family Provider Nurse Practitioner Family; PCP Internal Medicine; Visit Provider Internal Medicine
DX: U07.1 COVID-19 (principal)
CPT/HCPCS: U0003

== ENCOUNTER → 2021-05-24 07:51 | Outpatient (ROUT) | payer OTHER, SELFPAY ==
[2021-05-24 08:16] LABS: Add Manual Diff / Slide Review NO; Basophils Absolute Auto 100 /uL (0-100); Basophils Percent Auto 0.9 % (0-2); Eosinophils Absolute Auto 200 /uL (0-450); Eosinophils Percent Auto 2.7 % (2-4); Hematocrit 37.2 % (36-46); Hemoglobin 12.4 g/dL (12.0-16.0); Lymphocytes Absolute Auto 900 /uL (1100-4500); Lymphocytes Percent Auto 14.5 % (25-40); Mean Corpuscular HGB Conc 33.2 % (30-36); Mean Corpuscular Hemoglobin 28.6 PG (26-34); Mean Corpuscular Volume 86.3 fL (80-100); Monocytes Absolute Auto 400 /uL (0-900); Monocytes Percent Auto 5.8 % (3-14); Neutrophils Absolute Auto 4600 /uL (1500-7000); Neutrophils Percent Auto 76.1 % (50-75); Platelet Count 282 X10^3/uL (150-400); Red Blood Cell Count 4.31 X10^6/uL (4.0-5.2); Red Cell Distribution Width 14.1 % (11.6-14.8); White Blood Cell Count 6.1 X10^3/uL (4.5-11.0)
[2021-05-24 08:19] LABS: Hemoglobin A1C% w Est Avg Glu 8.9 % (4.0-6.0)
[2021-05-24 08:44] LABS: Alanine Aminotransferase 20 IU/L (<35); Albumin 3.9 g/dL (3.5-5.0); Albumin Globulin Ratio 1.1 (1.0-2.8); Alkaline Phosphatase 59 U/L (38-126); Aspartate Aminotransferase 25 IU/L (14-36); BUN Creatinine Ratio 20.3 (6-22); Bilirubin Total 0.5 mg/dL (0.2-1.3); Blood Urea Nitrogen 14 mg/dL (7-17); Calcium 9.4 mg/dL (8.4-10.2); Carbon Dioxide 36 mmol/L (22-32); Chloride 97 mmol/L (98-107); Estimated Glomerular Filt Rate > 60.0 mL/min (>60); Globulin 3.4 g/dL (1.7-4.1); Glucose 179 mg/dL (80-110); HEMOLYSIS 17 (0-50); Potassium 3.9 mmol/L (3.4-5.1); Sodium 138 mmol/L (137-145); Total Protein 7.3 g/dL (6.3-8.2)
[2021-05-24 09:21] LABS: Thyroid Stimulating Hormone 2.41 uIU/mL (0.47-4.68)
== END ==
PROVIDERS: Family Provider Nurse Practitioner Family; PCP Internal Medicine; Visit Provider Nurse Practitioner Gerontology
DX: E03.9 Hypothyroidism, unspecified (principal); E08.9 Diabetes mellitus due to underlying condition without complications; R10.9 Unspecified abdominal pain; K76.0 Fatty (change of) liver, not elsewhere classified
CPT/HCPCS: 36415; 80053; 83036; 84443; 85025

== ENCOUNTER → 2021-08-02 07:28 | Outpatient (ROUT) | payer MEDICAID, SELFPAY ==
[2021-08-02 08:16] LABS: Add Manual Diff / Slide Review NO; Basophils Absolute Auto 100 /uL (0-100); Eosinophils Absolute Auto 200 /uL (0-450); Eosinophils Percent Auto 2.7 % (2-4); Hematocrit 39.9 % (36-46); Hemoglobin 13.3 g/dL (12.0-16.0); Lymphocytes Absolute Auto 900 /uL (1100-4500); Mean Corpuscular HGB Conc 33.4 % (30-36); Mean Corpuscular Hemoglobin 28.8 PG (26-34); Mean Corpuscular Volume 86.2 fL (80-100); Monocytes Absolute Auto 400 /uL (0-900); Monocytes Percent Auto 5.3 % (3-14); Neutrophils Absolute Auto 5500 /uL (1500-7000); Platelet Count 295 X10^3/uL (150-400); Red Blood Cell Count 4.63 X10^6/uL (4.0-5.2); Red Cell Distribution Width 13.5 % (11.6-14.8); White Blood Cell Count 7.1 X10^3/uL (4.5-11.0)
[2021-08-02 08:23] LABS: Hemoglobin A1C% w Est Avg Glu 9.3 % (4.0-6.0)
[2021-08-02 08:59] LABS: Blood Urea Nitrogen 18 mg/dL (7-17); Calcium 9.2 mg/dL (8.4-10.2); Carbon Dioxide 34 mmol/L (22-32); Chloride 98 mmol/L (98-107); Estimated Glomerular Filt Rate > 60.0 mL/min (>60); Glucose 171 mg/dL (80-110); HEMOLYSIS < 15 (0-50); Sodium 141 mmol/L (137-145)
[2021-08-02 09:29] LABS: Thyroid Stimulating Hormone 1.56 uIU/mL (0.47-4.68)
== END ==
PROVIDERS: Family Provider Nurse Practitioner Family; PCP Internal Medicine; Visit Provider Internal Medicine
DX: E11.9 Type 2 diabetes mellitus without complications (principal)
CPT/HCPCS: 36415; 80048; 83036; 84443; 85025

== ENCOUNTER → 2021-11-15 | Outpatient (ROUT) | payer MEDICARE, MEDICAID, SELFPAY ==
[2021-11-15 09:18] LABS: Hemoglobin A1C% w Est Avg Glu 8.8 % (4.0-6.0)
== END ==
PROVIDERS: Family Provider Nurse Practitioner Family; PCP Internal Medicine; Visit Provider Nurse Practitioner Family
DX: E11.9 Type 2 diabetes mellitus without complications (principal)
CPT/HCPCS: 36415; 83036

== ENCOUNTER → 2022-02-28 07:50 | Outpatient (ROUT) | payer MEDICARE, MEDICAID, SELFPAY ==
[2022-02-28 08:54] LABS: Hemoglobin A1C% w Est Avg Glu 8.5 % (4.0-6.0)
== END ==
PROVIDERS: Family Provider Nurse Practitioner Family; PCP Internal Medicine; Visit Provider Internal Medicine
DX: E11.9 Type 2 diabetes mellitus without complications (principal)
CPT/HCPCS: 36415; 83036

== ENCOUNTER → 2022-05-18 16:20 | Outpatient (ROUT) | payer MEDICARE, MEDICAID, SELFPAY ==
[2022-05-18 16:30] LABS: Add Manual Diff / Slide Review NO; Basophils Absolute Auto 100 /uL (0-100); Basophils Percent Auto 0.7 % (0-2); Eosinophils Absolute Auto 200 /uL (0-450); Eosinophils Percent Auto 2.5 % (2-4); Hematocrit 37.8 % (36-46); Hemoglobin 12.2 g/dL (12.0-16.0); Lymphocytes Absolute Auto 1000 /uL (1100-4500); Lymphocytes Percent Auto 13.9 % (25-40); Mean Corpuscular HGB Conc 32.3 % (30-36); Mean Corpuscular Hemoglobin 27.3 PG (26-34); Mean Corpuscular Volume 84.7 fL (80-100); Monocytes Absolute Auto 400 /uL (0-900); Monocytes Percent Auto 5.8 % (3-14); Neutrophils Absolute Auto 5600 /uL (1500-7000); Neutrophils Percent Auto 77.1 % (50-75); Platelet Count 248 X10^3/uL (150-400); Red Blood Cell Count 4.47 X10^6/uL (4.0-5.2); Red Cell Distribution Width 15.8 % (11.6-14.8); White Blood Cell Count 7.3 X10^3/uL (4.5-11.0)
[2022-05-18 16:56] LABS: Alanine Aminotransferase 20 IU/L (<35); Alkaline Phosphatase 72 U/L (38-126); Aspartate Aminotransferase 20 IU/L (14-36); BUN Creatinine Ratio 23.9 (6-22); Bilirubin Total 0.4 mg/dL (0.2-1.3); Blood Urea Nitrogen 17 mg/dL (7-17); Calcium 8.5 mg/dL (8.4-10.2); Carbon Dioxide 30 mmol/L (22-32); Chloride 94 mmol/L (98-107); Estimated Glomerular Filt Rate > 60 mL/min (>60); Glucose 199 mg/dL (80-110); HEMOLYSIS < 15 (0-50); Potassium 3.8 mmol/L (3.4-5.1); Sodium 135 mmol/L (137-145)
[2022-05-18 17:26] LABS: Carcinoembryonic Antigen 2.1 ng/mL (0.1-3.0)
[2022-05-19 16:57] LABS: Albumin 3.9 g/dL (3.5-5.0); Albumin Globulin Ratio 1.3 (1.0-2.8); Globulin 3.1 g/dL (1.7-4.1)
== END ==
PROVIDERS: Family Provider Nurse Practitioner Family; PCP Internal Medicine; Visit Provider Internal Medicine
DX: R19.00 Intra-abdominal and pelvic swelling, mass and lump, unspecified site (principal)
CPT/HCPCS: 80053; 82378; 85025

== ENCOUNTER → 2022-05-23 17:05 | Outpatient (CLI) | payer MEDICARE, MEDICAID, SELFPAY ==
--- NOTE | 2022-05-23 | DI.US.S_ITS ---
PROCEDURE: US ABDOMEN LIMITED INDICATIONS: RUQ MASS TECHNIQUE: Real-time focused scanning was performed of the abdomen, with image documentation. COMPARISON: [facility], CT, CT ABDOMEN PELVIS WITH CONTRAST, 09/19/2019, 16:02. [facility], US, US ABDOMEN LIMITED, 03/22/2020, 10:59. FINDINGS: Within the right upper quadrant, a hypoechoic superficial mass can be seen involving the right upper quadrant within the subcutaneous tissues that measures 6.4 x 3.3 x 4.6 cm. Mild internal vascularity can be seen. IMPRESSION: Soft tissue mass seen involving the subcutaneous layer of the right upper quadrant, with internal vascularity. This lesion is moderately suspicious for neoplasm, including sarcoma. Please consider a follow-up ultrasound guided core biopsy for further evaluation. Dictated by: Tip Crum M.D. on 05/23/2022 at 17:34 Approved by: Tip Crum M.D. on 05/23/2022 at 17:39
== END ==
PROVIDERS: Family Provider Nurse Practitioner Family; PCP Internal Medicine; Referring Provider Internal Medicine; Visit Provider Internal Medicine
DX: R19.01 Right upper quadrant abdominal swelling, mass and lump (principal)
CPT/HCPCS: 76705

== ENCOUNTER → 2022-05-30 07:27 | Outpatient (ROUT) | payer MEDICARE, MEDICAID, SELFPAY ==
[2022-05-30 07:37] LABS: Add Manual Diff / Slide Review NO; Basophils Absolute Auto 0 /uL (0-100); Basophils Percent Auto 0.6 % (0-2); Eosinophils Absolute Auto 100 /uL (0-450); Eosinophils Percent Auto 2.2 % (2-4); Hematocrit 38.9 % (36-46); Hemoglobin 12.8 g/dL (12.0-16.0); INR 1.1 (0.9-1.3); Lymphocytes Absolute Auto 1000 /uL (1100-4500); Lymphocytes Percent Auto 15.9 % (25-40); Mean Corpuscular HGB Conc 32.8 % (30-36); Mean Corpuscular Hemoglobin 27.6 PG (26-34); Mean Corpuscular Volume 84.2 fL (80-100); Monocytes Absolute Auto 400 /uL (0-900); Monocytes Percent Auto 6.1 % (3-14); Neutrophils Absolute Auto 4800 /uL (1500-7000); Neutrophils Percent Auto 75.2 % (50-75); Platelet Count 296 X10^3/uL (150-400); Prothrombin Time 12.1 SECONDS (10.1-12.7); Red Blood Cell Count 4.62 X10^6/uL (4.0-5.2); Red Cell Distribution Width 15.5 % (11.6-14.8); White Blood Cell Count 6.5 X10^3/uL (4.5-11.0)
== END ==
PROVIDERS: Family Provider Nurse Practitioner Family; PCP Internal Medicine; Visit Provider Internal Medicine
DX: Z01.818 Encounter for other preprocedural examination (principal)
CPT/HCPCS: 36415; 85025; 85610

== ENCOUNTER → 2022-06-06 08:00 | Outpatient (CLI) | payer MEDICARE, MEDICAID, SELFPAY ==
--- NOTE | 2022-06-06 | PATH_ITS ---
[facility] Accession Number: [id number] No. of containers..01 Tissue . 01 Material submitted: . abdomen - RIGHT ABDOMINAL WALL MASS . 01 Diagnosis: Right Abdominal Wall Mass, Needle Core Biopsy: Adenocarcinoma, with immunophenotype consistent with mullerian primary. See comment. KENIA 06/12/2022 1305 Local . 01 Comment: The patient's history of endometrial adenocarcinoma is noted and the morphology and immunohistochemical findings are consistent with endometrial adenocarcinoma. As part of routine water quality manager, the H/E slide has also been reviewed by Dr. Tima Gordon, who agrees with the preliminary interpretation of adenocarcinoma. An attempt was made to convey the preliminary findings to the provider on 06/08/2022 at 1230 hours but was unsuccessful. . 01 Electronically signed: . April Joel MD, Pathologist NPI- [id number] . 01 Gross description: . Received one formalin-filled container, labeled with the patient's name and designated right abdominal wall mass, are multiple reza-hamlin, cylindrical-shaped portions of tissue which range in length from 0.2 cm to 0.7 cm with an average diameter of 0.1 cm. Entirely submitted in one cassette. ([id number]) /BERNARDINO 06/07/2022 0334 Local . 01 Microscopic: . The lesional glands are positive for PAX-8 and ER and are negative for SATB2 and EVERETTE-3. The immunostains support muellerian origin and argue against colon and bladder primaries. All controls stain approrpiately. . Technical Note: This test and its performance characteristics have been determined by [facility]. It has not been cleared or approved by the U.S. Food and Drug Administration. The FDA has determined that such clearance or approval is not necessary. This test is used for clinical purposes. It should not be regarded as investigational or for research. . 01 Pathologist provided ICD-10: Z85.42 . 01 CPT . 266802, C38159, [id number] Specimen Comment: A courtesy copy of this report has been sent to [phone] Performed at: 01 [facility] [address] [place] [address], [place], [place] [id number] MD Alfie Hodge MD Phone: [phone]
--- NOTE | 2022-06-06 | DI.US.S_ITS ---
PROCEDURE: US BIOPSY ABD OR RETROPERIT Ultrasound-guided abdominal wall mass biopsy. INDICATIONS: Abdominal mass TECHNIQUE: The indications, alternatives, benefits, risks, and complications of the procedure were explained to the patient. Written informed consent was obtained and placed in the chart. Moderate sedation was not performed as the target lesion is present in the superficial abdominal wall and moderate sedation was felt unnecessary. Real-time sonography was utilized to choose the site for percutaneous abdominal wall mass biopsy. The skin was prepped and draped in the usual sterile fashion. 1% lidocaine was infiltrated down to the site of interest. A coaxial needle was then advanced into the site of interest under direct sonographic visualization. A biopsy apparatus was then utilized, and core biopsies were obtained. The needle was then withdrawn; a bandage was applied to the biopsy site. COMPARISON: [facility], , US ABDOMEN LIMITED, 05/23/2022, 17:22. FINDINGS: Biopsy site(s): Right anterior abdominal wall Needle: First Active Mediano biopsy needle set. Number of passes: 5 Medications: 1% lidocaine for local anaesthesia. Complications: None. IMPRESSION: Successful ultrasound-guided right abdominal wall mass biopsy, with pathology results pending. Dictated by: Zeeshan Hurtado M.D. on 06/06/2022 at 10:33 Approved by: Zeeshan Hurtado M.D. on 06/06/2022 at 10:37
== END ==
PROVIDERS: Family Provider Nurse Practitioner Family; PCP Internal Medicine; Referring Provider Internal Medicine; Visit Provider Internal Medicine
DX: R19.00 Intra-abdominal and pelvic swelling, mass and lump, unspecified site (principal)
CPT/HCPCS: 49180; 76942

== ENCOUNTER → 2022-06-15 18:14 | Outpatient (ROUT) | payer MEDICARE, MEDICAID, SELFPAY ==
[2022-06-15 18:31] LABS: BUN Creatinine Ratio 23.9 (6-22); Blood Urea Nitrogen 17 mg/dL (7-17); Calcium 9.1 mg/dL (8.4-10.2); Carbon Dioxide 33 mmol/L (22-32); Chloride 91 mmol/L (98-107); Estimated Glomerular Filt Rate > 60 mL/min (>60); Glucose 216 mg/dL (80-110); HEMOLYSIS < 15 (0-50); Potassium 4.2 mmol/L (3.4-5.1); Sodium 136 mmol/L (137-145)
== END ==
PROVIDERS: Family Provider Nurse Practitioner Family; PCP Internal Medicine; Visit Provider Internal Medicine
DX: Z01.812 Encounter for preprocedural laboratory examination (principal)
CPT/HCPCS: 80048

== ENCOUNTER → 2022-06-19 10:55 | Outpatient (CLI) | payer MEDICARE, MEDICAID, SELFPAY ==
--- NOTE | 2022-06-19 | DI.CT.S_ITS ---
PROCEDURE: CT CHEST ABD PEL W CON INDICATIONS: MALIGNANT NEOPLASM OF ENDOMETRIUM TECHNIQUE: After the administration of oral and intravenous contrast, axial sections acquired from the supraclavicular neck to the pubic symphysis. Coronal and sagittal reformats were performed. For radiation dose reduction, the following was used: automated exposure control, adjustment of mA and/or kV according to patient size. COMPARISON: [facility], CT, CT CHEST ABD PEL W CON, 10/25/2018, 12:01. FINDINGS: Image quality: Excellent. CHEST: Lower Neck: No enlarged lymph nodes. Thyroid: Prior left thyroid lobectomy. Axillae: No enlarged lymph nodes. Chest Wall: Unremarkable. Lungs and Airways: No consolidation or suspicious nodules. Pleura: No pneumothorax or pleural effusions. Heart: Heart size is mildly enlarged. No pericardial effusion. Three-vessel coronary calcifications, status post CABG. Thoracic Vessels: The aorta and pulmonary arteries demonstrate normal size. Mediastinum and Judi: No enlarged lymph nodes. Esophagus: No wall thickening. No hiatal hernia. ABDOMEN: Liver: Unremarkable. Gallbladder: Cholelithiasis without wall thickening or adjacent fat stranding to suggest acute cholecystitis. Biliary ducts: Unremarkable. Pancreas: Unremarkable. Spleen: Unremarkable. Adrenal Glands: Unremarkable. Kidneys and Ureters: Unremarkable. Stomach and Bowel: Stomach, small bowel loops, and colon are unremarkable. Peritoneum: New anterior peritoneal nodularity, most consistent with peritoneal carcinomatosis. Largest implant as follows: -2.5 cm nodularity in the right lower quadrant (2/101). -2.1 cm nodularity in the midline mid abdomen (2/87). Ventral Wall: 5.7 cm mass within the right rectus muscle (2/90). Abdominal Nodes: No retroperitoneal or mesenteric adenopathy by size criteria. Vessels: Aorta and inferior vena cava are normal in size. PELVIS: Pelvic Organs: Prior hysterectomy. Bladder: Unremarkable. Pelvic Nodes: No enlarged lymph nodes. Miscellaneous: No inguinal hernias are seen. Bones: Unremarkable. IMPRESSION: 1. Prior hysterectomy, without evidence of local recurrence. 2. New peritoneal carcinomatosis, given extensive new omental and mesenteric nodularity. 3. 5.7 cm right rectus abdominus muscle mass, also probably malignancy. 4. Cholelithiasis without evidence of acute cholecystitis. Dictated by: eG Mack M.D. on 06/19/2022 at 13:40 Approved by: Ge Mack M.D. on 06/19/2022 at 13:47
== END ==
PROVIDERS: Family Provider Nurse Practitioner Family; PCP Internal Medicine; Referring Provider Internal Medicine; Visit Provider Internal Medicine
DX: C54.1 Malignant neoplasm of endometrium (principal); M62.9 Disorder of muscle, unspecified; C78.6 Secondary malignant neoplasm of retroperitoneum and peritoneum; K80.20 Calculus of gallbladder without cholecystitis without obstruction; Z90.710 Acquired absence of both cervix and uterus
CPT/HCPCS: 71260; 74177; Q9967

== ENCOUNTER → 2022-07-28 09:58 | Outpatient (CLI) | payer MEDICARE, MEDICAID, SELFPAY | PROVIDERS: Family Provider Nurse Practitioner Family; PCP Internal Medicine; Referring Provider Internal Medicine; Visit Provider Internal Medicine | DX: Z01.818 Encounter for other preprocedural examination (principal); I25.10 Atherosclerotic heart disease of native coronary artery without angina pectoris | CPT/HCPCS: 93005 ==

== ENCOUNTER → 2022-08-02 11:14 | Outpatient (ROUT) | payer MEDICARE, MEDICAID, SELFPAY ==
[2022-08-02 11:21] LABS: Add Manual Diff / Slide Review NO; Basophils Absolute Auto 100 /uL (0-100); Basophils Percent Auto 3.9 % (0-2); Eosinophils Absolute Auto 300 /uL (0-450); Eosinophils Percent Auto 12.6 % (2-4); Hematocrit 36.1 % (36-46); Hemoglobin 11.9 g/dL (12.0-16.0); Lymphocytes Absolute Auto 700 /uL (1100-4500); Lymphocytes Percent Auto 31.1 % (25-40); Mean Corpuscular HGB Conc 32.8 % (30-36); Mean Corpuscular Hemoglobin 27.7 PG (26-34); Mean Corpuscular Volume 84.5 fL (80-100); Monocytes Absolute Auto 500 /uL (0-900); Monocytes Percent Auto 20.8 % (3-14); Neutrophils Absolute Auto 700 /uL (1500-7000); Neutrophils Percent Auto 31.6 % (50-75); Platelet Count 252 X10^3/uL (150-400); Red Blood Cell Count 4.28 X10^6/uL (4.0-5.2); Red Cell Distribution Width 14.7 % (11.6-14.8); White Blood Cell Count 2.3 X10^3/uL (4.5-11.0)
[2022-08-02 11:31] LABS: Alanine Aminotransferase 31 IU/L (<35); Albumin 4.1 g/dL (3.5-5.0); Albumin Globulin Ratio 1.2 (1.0-2.8); Alkaline Phosphatase 61 U/L (38-126); Aspartate Aminotransferase 27 IU/L (14-36); BUN Creatinine Ratio 23.3 (6-22); Bilirubin Total 0.3 mg/dL (0.2-1.3); Blood Urea Nitrogen 17 mg/dL (7-17); Carbon Dioxide 27 mmol/L (22-32); Chloride 100 mmol/L (98-107); Estimated Glomerular Filt Rate > 60 mL/min (>60); Globulin 3.5 g/dL (1.7-4.1); Glucose 196 mg/dL (80-110); HEMOLYSIS < 15 (0-50); Potassium 3.8 mmol/L (3.4-5.1); Sodium 139 mmol/L (137-145); Total Protein 7.6 g/dL (6.3-8.2)
== END ==
PROVIDERS: Family Provider Nurse Practitioner Family; PCP Internal Medicine; Visit Provider Internal Medicine
DX: Z01.818 Encounter for other preprocedural examination (principal)
CPT/HCPCS: 80053; 85025

== ENCOUNTER → 2022-12-18 10:05 | Outpatient (CLI) | payer MEDICARE, MEDICAID, SELFPAY ==
--- NOTE | 2022-12-18 10:07 | DI.CT.S_ITS ---
PROCEDURE: CT CHEST ABD PEL W CON INDICATIONS: METASTATIC ENDOMETRIAL CANCER TECHNIQUE: After the administration of oral and intravenous contrast, axial sections acquired from the supraclavicular neck to the pubic symphysis. Coronal and sagittal reformats were performed. For radiation dose reduction, the following was used: automated exposure control, adjustment of mA and/or kV according to patient size. COMPARISON: [facility], CT, CT CHEST ABD PEL W CON, 06/19/2022, 12:31. FINDINGS: Image quality: Excellent. CHEST: Lower Neck: No adenopathy. Thyroid: Partial left thyroidectomy. Axillae: No adenopathy. Chest Wall: Right chest MediPort. Lungs and Airways: Central and peripheral airways are normal without bronchial wall thickening or bronchiectasis. No suspicious nodule or mass. Mild left lung base interstitial thickening. No consolidations. Pleura: No pneumothorax or pleural effusions. Heart: Mild cardiomegaly. Heavy coronary artery calcification and CABG changes. No pericardial effusion. Thoracic Vessels: The aorta and pulmonary arteries demonstrate normal size. Mediastinum and Judi: No enlarged lymph nodes. Esophagus: No wall thickening. No hiatal hernia. ABDOMEN: Liver: No suspicious liver mass. Gallbladder: Possible large stone proximally, similar compared to prior. No wall thickening. Biliary ducts: Nondilated. Pancreas: Normal. Spleen: Normal size. Adrenal Glands: Unremarkable. Kidneys and Ureters: Symmetric enhancement. No nephrolithiasis or hydronephrosis. No hydroureter. Stomach and Bowel: Stomach and small bowel loops are normal caliber. Sigmoid diverticulosis. Peritoneum: There are a few small nodules along the anterior peritoneal surface. These have considerably decreased in size and number compared to the prior exam. The largest now measures 1.1 cm, previously 2.3 cm. Ventral Wall: There is an intramuscular mass in the right rectus sheath measuring 2.1 x 4.3 cm, previously 3.0 x 5.3 cm. Abdominal Nodes: No suspicious mesenteric mass or retroperitoneal adenopathy. A small curvilinear soft tissue nodule measuring 1.3 cm is present in the right lower quadrant mesentery, previously 2.5 cm. Vessels: Aorta and inferior vena cava are normal in size. Moderate abdominal aortic atherosclerotic calcification. PELVIS: Pelvic Organs: Absent uterus and ovaries. Bladder: Under distended. Pelvic Nodes: No bulky adenopathy. Miscellaneous: No inguinal hernias are seen. Bones: Unremarkable. No suspicious bone lesion IMPRESSION: 1. No evidence of metastatic disease in the chest. 2. Decreased size of peritoneal, mesenteric, and ventral abdominal wall masses. 3. No evidence of new adenopathy or new sites of metastases in the abdomen or pelvis. 4. Cholelithiasis. 5. Prior CABG and heavy coronary artery calcification. Dictated by: Aggie Cabrera M.D. on 12/18/2022 at 14:37 Approved by: Aggie Cabrera M.D. on 12/18/2022 at 14:48
== END ==
PROVIDERS: Family Provider Nurse Practitioner Family; PCP Internal Medicine; Referring Provider Internal Medicine; Visit Provider Internal Medicine
DX: C54.1 Malignant neoplasm of endometrium (principal); K80.20 Calculus of gallbladder without cholecystitis without obstruction; I25.10 Atherosclerotic heart disease of native coronary artery without angina pectoris; Z95.1 Presence of aortocoronary bypass graft
CPT/HCPCS: 71260; 74177; Q9967

== ENCOUNTER → 2023-02-27 07:41 | Outpatient (ROUT) | payer MEDICARE, MEDICAID, SELFPAY ==
[2023-02-27 08:21] LABS: Add Manual Diff / Slide Review NO; Basophils Absolute Auto 0 /uL (0-100); Basophils Percent Auto 0.6 % (0-2); Eosinophils Absolute Auto 300 /uL (0-450); Eosinophils Percent Auto 3.9 % (2-4); Hematocrit 34.1 % (36-46); Hemoglobin 11.5 g/dL (12.0-16.0); Lymphocytes Absolute Auto 900 /uL (1100-4500); Mean Corpuscular HGB Conc 33.8 % (30-36); Mean Corpuscular Hemoglobin 31.2 PG (26-34); Mean Corpuscular Volume 92.4 fL (80-100); Monocytes Absolute Auto 300 /uL (0-900); Monocytes Percent Auto 5.4 % (3-14); Neutrophils Absolute Auto 4900 /uL (1500-7000); Neutrophils Percent Auto 76.1 % (50-75); Platelet Count 246 X10^3/uL (150-400); Red Blood Cell Count 3.69 X10^6/uL (4.0-5.2); Red Cell Distribution Width 14.1 % (11.6-14.8); White Blood Cell Count 6.4 X10^3/uL (4.5-11.0)
[2023-02-27 08:35] LABS: Alanine Aminotransferase 19 IU/L (<35); Albumin 4.2 g/dL (3.5-5.0); Albumin Globulin Ratio 1.4 (1.0-2.8); Alkaline Phosphatase 65 U/L (38-126); Aspartate Aminotransferase 21 IU/L (14-36); BUN Creatinine Ratio 23.5 (6-22); Bilirubin Total 0.3 mg/dL (0.2-1.3); Blood Urea Nitrogen 19 mg/dL (7-17); Calcium 8.8 mg/dL (8.4-10.2); Carbon Dioxide 25 mmol/L (22-32); Chloride 98 mmol/L (98-107); Estimated Glomerular Filt Rate > 60 mL/min (>60); Globulin 3.1 g/dL (1.7-4.1); Glucose 169 mg/dL (80-110); HEMOLYSIS < 15 (0-50); Potassium 4.1 mmol/L (3.4-5.1); Sodium 137 mmol/L (137-145); Total Protein 7.3 g/dL (6.3-8.2)
[2023-02-27 09:03] LABS: Cancer Antigen 125 15.2 U/mL (0-35)
== END ==
PROVIDERS: Family Provider Nurse Practitioner Family; PCP Internal Medicine; Visit Provider Nurse Practitioner Family
DX: C54.1 Malignant neoplasm of endometrium (principal)
CPT/HCPCS: 36415; 80053; 85025; 86304

== ENCOUNTER → 2023-03-06 09:58 | Outpatient (CLI) | payer MEDICARE, MEDICAID, SELFPAY ==
--- NOTE | 2023-03-06 11:13 | DI.CT.S_ITS ---
PROCEDURE: CT CHEST ABD PEL W CON INDICATIONS: Malignant neoplasm of endometrium TECHNIQUE: After the administration of oral and intravenous contrast, axial sections acquired from the supraclavicular neck to the pubic symphysis. Coronal and sagittal reformats were performed. For radiation dose reduction, the following was used: automated exposure control, adjustment of mA and/or kV according to patient size. COMPARISON: [facility], CT, CT CHEST ABD PEL W CON, 12/18/2022, 12:12. FINDINGS: Image quality: Excellent. CHEST: Lower Neck: No enlarged lymph nodes. Thyroid: Partial left thyroidectomy. Axillae: No enlarged lymph nodes. Chest Wall: Right chest MediPort. Lungs and Airways: Left lower lobe septal thickening. Central and peripheral airways are normal without bronchial wall thickening or bronchiectasis. No suspicious lung nodules. No airspace consolidations or ground-glass opacities. Pleura: No pneumothorax or pleural effusions. Heart: Heart is mildly enlarged with heavy [place] coronary artery calcification and CABG changes. No pericardial effusion. Thoracic Vessels: Mild pulmonary artery prominence. Normal aortic contour. Mediastinum and Judi: No enlarged lymph nodes. Esophagus: No wall thickening. No hiatal hernia. ABDOMEN: Liver: Mildly enlarged and steatotic. No discrete mass. Gallbladder: Cholelithiasis. No gallbladder wall thickening. Biliary ducts: Nondilated. Pancreas: Normal. Spleen: Normal size. Adrenal Glands: Unremarkable. Kidneys and Ureters: Symmetric enhancement. No nephrolithiasis or hydronephrosis. No hydroureter. Stomach and Bowel: Stomach, small bowel loops, and colon are unremarkable. Sigmoid diverticulosis. Peritoneum: Several tiny nodules along the anterior peritoneal surface are present. 1 of the largest along the rectus sheath measures about 1 cm, fairly stable. No free peritoneal fluid or free air. Ventral Wall: There is an intramuscular soft tissue mass in the right rectus sheath measuring 5.1 x 2.8 cm, slightly increased compared to prior. Abdominal Nodes: No bulky adenopathy in the mesentery or retroperitoneum. Vessels: Aorta and inferior vena cava are normal in size. Moderate abdominal aortic atherosclerotic calcification. PELVIS: Pelvic Organs: Uterus and ovaries are surgically absent. Bladder: Partially decompressed with expected wall thickening. No stones. Pelvic Nodes: No enlarged lymph nodes. Miscellaneous: No inguinal hernias are seen. Bones: Median sternotomy changes. Endplate osteophytosis through the thoracic and in the lower lumbar spine. No suspicious bone lesions. IMPRESSION: 1. Stable size and extent of anterior peritoneal nodules. 2. Mild increase in right rectus sheath soft tissue mass size. 3. No new sites of metastatic disease. 4. Coronary artery disease. 5. Cholelithiasis. Dictated by: Aggie Cabrera M.D. on 03/06/2023 at 16:45 Approved by: Aggie Cabrera M.D. on 03/06/2023 at 16:54
== END ==
PROVIDERS: Family Provider Nurse Practitioner Family; PCP Internal Medicine; Referring Provider Internal Medicine Hematology & Oncology; Visit Provider Internal Medicine Hematology & Oncology
DX: C54.1 Malignant neoplasm of endometrium (principal); K66.9 Disorder of peritoneum, unspecified; K80.20 Calculus of gallbladder without cholecystitis without obstruction; K76.0 Fatty (change of) liver, not elsewhere classified; I70.0 Atherosclerosis of aorta; I25.10 Atherosclerotic heart disease of native coronary artery without angina pectoris; I51.7 Cardiomegaly; Z95.1 Presence of aortocoronary bypass graft
CPT/HCPCS: 71260; 74177

== ENCOUNTER → 2023-06-12 06:46 | Outpatient (ROUT) | payer MEDICARE, MEDICAID, SELFPAY ==
[2023-06-12 07:03] LABS: Add Manual Diff / Slide Review NO; Basophils Absolute Auto 0 /uL (0-100); Basophils Percent Auto 0.4 % (0-2); Eosinophils Absolute Auto 200 /uL (0-450); Eosinophils Percent Auto 2.5 % (2-4); Hematocrit 32.4 % (36-46); Hemoglobin 10.8 g/dL (12.0-16.0); Lymphocytes Absolute Auto 1200 /uL (1100-4500); Lymphocytes Percent Auto 18.2 % (25-40); Mean Corpuscular HGB Conc 33.4 % (30-36); Mean Corpuscular Hemoglobin 29.5 PG (26-34); Mean Corpuscular Volume 88.3 fL (80-100); Monocytes Absolute Auto 500 /uL (0-900); Monocytes Percent Auto 7.1 % (3-14); Neutrophils Absolute Auto 4800 /uL (1500-7000); Neutrophils Percent Auto 71.8 % (50-75); Platelet Count 205 X10^3/uL (150-400); Red Blood Cell Count 3.67 X10^6/uL (4.0-5.2); Red Cell Distribution Width 14.5 % (11.6-14.8); White Blood Cell Count 6.7 X10^3/uL (4.5-11.0)
[2023-06-12 07:20] LABS: Alanine Aminotransferase 17 IU/L (<35); Albumin 3.7 g/dL (3.5-5.0); Albumin Globulin Ratio 1.2 (1.0-2.8); Alkaline Phosphatase 53 U/L (38-126); Aspartate Aminotransferase 18 IU/L (14-36); BUN Creatinine Ratio 27.4 (6-22); Bilirubin Total 0.5 mg/dL (0.2-1.3); Blood Urea Nitrogen 23 mg/dL (7-17); Calcium 8.8 mg/dL (8.4-10.2); Carbon Dioxide 29 mmol/L (22-32); Chloride 98 mmol/L (98-107); Estimated Glomerular Filt Rate > 60 mL/min (>60); Glucose 162 mg/dL (80-110); HEMOLYSIS < 15 (0-50); Potassium 3.8 mmol/L (3.4-5.1); Sodium 136 mmol/L (137-145); Total Protein 6.7 g/dL (6.3-8.2)
[2023-06-12 07:51] LABS: Cancer Antigen 125 12.3 U/mL (0-35)
== END ==
PROVIDERS: Family Provider Nurse Practitioner Family; PCP Internal Medicine; Visit Provider Internal Medicine
DX: C54.1 Malignant neoplasm of endometrium (principal)
CPT/HCPCS: 36415; 80053; 85025; 86304

== ENCOUNTER → 2023-06-14 08:41 | Outpatient (CLI) | payer MEDICARE, MEDICAID, SELFPAY ==
--- NOTE | 2023-06-14 08:43 | DI.CT.S_ITS ---
PROCEDURE: CT CHEST ABD PEL W CON INDICATIONS: ADENOCARCINOMA OF ENDOMETRIUM TECHNIQUE: After the administration of intravenous contrast, 5 mm thick sections acquired from the lung apices to the symphysis. 5 mm coronal and sagittal reformats were performed, with additional 7 mm MIP reformats through the lungs. For radiation dose reduction, the following was used: automated exposure control, adjustment of mA and/or kV according to patient size. COMPARISON: [facility], CR, XR INTRAOPERATIVE PICC PORT PLACEMENT, 08/04/2022, 8:21. [facility], CR, XR CHEST 1 VIEW, 08/04/2022, 10:43. [facility], CT, CT CHEST ABD PEL W CON, 03/06/2023, 11:12. FINDINGS: Image quality: Excellent. CHEST: Lower Neck: No enlarged lymph nodes. Thyroid: No thyroid nodules which require sonographic follow up, per consensus guidelines. Left thyroid is likely surgically absent. Axillae: No enlarged lymph nodes. Chest Wall: Right chest wall port. Intact sternotomy wires. Lungs and Pleura: No pneumothorax or pleural effusions. Compared to CT dated March 06, 2023, no new or enlarging solid pulmonary nodules or consolidation. Left lower lobe linear atelectasis/scar. Heart: Heart size is normal. No pericardial effusion. Marked coronary vessel calcifications. Postsurgical changes of CABG. Thoracic Vessels: The aorta and pulmonary arteries demonstrate normal size. Right-sided port tip terminates in the upper SVC. No filling defects in the central pulmonary vasculature. Mild calcification of the thoracic aorta. [place] origin of the right brachiocephalic and left common carotid, normal variant. Mediastinum and Judi: No enlarged lymph nodes. Esophagus: No wall thickening. No hiatal hernia. ABDOMEN: Liver: No solid mass. Diffuse hypoattenuation of the liver. Gallbladder: Cholelithiasis without acute cholecystitis. Biliary ducts: No biliary dilation. Pancreas: No ductal dilation. Spleen: Size is within normal limits. Adrenal Glands: No adrenal nodules. Kidneys and Ureters: No hydronephrosis. No solid mass. No complex renal cystic lesion which requires follow up. Stomach and Bowel: Stomach appears grossly normal. Small and large bowel is normal in caliber, without obstruction. Sigmoid and scattered colonic diverticulosis, without diverticulitis. No pneumatosis, pneumoperitoneum or portal venous gas. Peritoneum: No new or enlarging peritoneal nodules. Several tiny nodules along the anterior peritoneal surface are stable measuring up to 0.4 cm (for example, /, 83, 87). No abnormal intraperitoneal fluid. Ventral Wall: No significant ventral hernia. Compared to CT chest dated March 06, 2023, increased size of mass in the right rectus sheath measuring 5.8 x 3 x 5.4 cm (, 08/08), previously 5.1 x 2.9 x 3.8 cm (, 09/05). Abdominal Nodes: No retroperitoneal or mesenteric adenopathy by size criteria. Vessels: Aorta and inferior vena cava are normal in size. Moderate to severe atherosclerotic calcification of the abdominal aorta and branch vessels, without aneurysm. Proximal mesenteric vessels are patent. Patent portal, splenic and bilateral renal veins. PELVIS: Pelvic Organs: Hysterectomy. No soft tissue nodularity or abnormal enhancement. Bladder: No bladder wall thickening, accounting for underdistention. Pelvic Nodes: No enlarged lymph nodes. Miscellaneous: No inguinal hernias are seen. Bones: No aggressive osseous abnormality. No acute fractures. Moderate to severe multilevel degenerative changes of the spine. IMPRESSION: 1. Compared to CT chest dated March 06, 2023, increased size of right rectus sheath soft tissue mass measuring 5.8 x 3 x 5.4 cm, previously 5.1 x 2.9 x 3.8 cm. 2. Stable scattered anterior peritoneal nodules measuring up to 0.4 cm. 3. No new sites of metastatic disease. 4. Severe coronary artery disease status post CABG. 5. Cholelithiasis and diverticulosis. Significant images would not save despite multiple attempts. Dictated by: Wayne Iverson M.D. on 06/14/2023 at 11:59 Approved by: Wayne Iverson M.D. on 06/14/2023 at 12:31
== END ==
PROVIDERS: Family Provider Nurse Practitioner Family; PCP Internal Medicine; Referring Provider Internal Medicine Hematology & Oncology; Visit Provider Internal Medicine Hematology & Oncology
DX: C54.1 Malignant neoplasm of endometrium (principal); K80.20 Calculus of gallbladder without cholecystitis without obstruction; K57.30 Diverticulosis of large intestine without perforation or abscess without bleeding; I25.10 Atherosclerotic heart disease of native coronary artery without angina pectoris; Z95.1 Presence of aortocoronary bypass graft
CPT/HCPCS: 71260; 74177; Q9967

== ENCOUNTER → 2023-11-20 11:06 | Outpatient (CLI) | payer MEDICARE, MEDICAID, SELFPAY ==
[2023-11-20 11:42] LABS: Estimated Glomerular Filt Rate 45 mL/min (>60)
--- NOTE | 2023-11-20 13:00 | DI.CT.S_ITS ---
PROCEDURE: CT CHEST ABD PEL W CON INDICATIONS: ADENOCARCINOMA OF ENDOMETRIUM TECHNIQUE: After the administration of intravenous contrast, 5 mm thick sections acquired from the lung apices to the symphysis. 5 mm coronal and sagittal reformats were performed, with additional 7 mm MIP reformats through the lungs. For radiation dose reduction, the following was used: automated exposure control, adjustment of mA and/or kV according to patient size. COMPARISON: [facility], CT, CT CHEST ABD PEL W CON, 06/14/2023, 10:00. FINDINGS: Image quality: Excellent. CHEST: Lower Neck: No enlarged lymph nodes. Thyroid: Left thyroid lobe resection. Right thyroid is unremarkable. Axillae: No enlarged lymph nodes. Chest Wall: Right chest wall port tip terminates in the mid SVC. Lungs and Pleura: No pneumothorax or pleural effusions. No consolidation or suspicious nodules. Heart: Heart size is normal. No pericardial effusion. Coronary stents and CABG. Thoracic Vessels: The aorta and pulmonary arteries demonstrate normal size. Mediastinum and Judi: No enlarged lymph nodes. Esophagus: No wall thickening. No hiatal hernia. ABDOMEN: Liver: No solid mass. Gallbladder: Cholelithiasis without wall thickening or adjacent fat stranding to suggest acute cholecystitis. Biliary ducts: No biliary dilation. Pancreas: No ductal dilation. Spleen: Size is within normal limits. Adrenal Glands: No adrenal nodules. Kidneys and Ureters: No hydronephrosis. No solid mass. No complex renal cystic lesion which requires follow up. Stomach and Bowel: Normal colonic caliber, without significant wall thickening. Colonic diverticulosis without evidence of diverticulitis. Suspected new peritoneal nodules. For instance, the new 8 millimeter nodule along the right lower quadrant (series 2, image 87). Peritoneum: No abnormal intraperitoneal fluid. No free air. Ventral Wall: No significant ventral hernia. Abdominal Nodes: No retroperitoneal or mesenteric adenopathy by size criteria. Vessels: Aorta and inferior vena cava are normal in size. PELVIS: Pelvic Organs: Hysterectomy. Bladder: No bladder wall thickening, accounting for underdistention. Pelvic Nodes: No enlarged lymph nodes. Miscellaneous: Right rectus mass measures 4.1 x 2.1 centimeter, previously 5.8 x 3.1 centimeter using similar measuring techniques. Bones: No aggressive osseous abnormality. IMPRESSION: Hysterectomy. A few new peritoneal nodules are present. Interval decrease in size of the right rectus mass. Dictated by: Ge Mack M.D. on 11/20/2023 at 18:16 Approved by: Ge Mack M.D. on 11/20/2023 at 18:23
== END ==
PROVIDERS: Radiology Diagnostic Radiology; Family Provider Nurse Practitioner Family; PCP Internal Medicine; Referring Provider Internal Medicine Hematology & Oncology; Visit Provider Internal Medicine Hematology & Oncology
DX: C54.1 Malignant neoplasm of endometrium (principal); K62.9 Disease of anus and rectum, unspecified; K66.9 Disorder of peritoneum, unspecified; K80.20 Calculus of gallbladder without cholecystitis without obstruction; K57.90 Diverticulosis of intestine, part unspecified, without perforation or abscess without bleeding; I25.10 Atherosclerotic heart disease of native coronary artery without angina pectoris; Z95.1 Presence of aortocoronary bypass graft; Z90.710 Acquired absence of both cervix and uterus; Z95.828 Presence of other vascular implants and grafts
CPT/HCPCS: 36415; 71260; 74177; 82565; Q9967

== ENCOUNTER → 2023-11-27 11:53 | Outpatient (ROUT) | payer MEDICARE, MEDICAID, SELFPAY ==
[2023-11-27 12:59] LABS: Hemoglobin A1C% w Est Avg Glu 6.7 % (4.0-6.0)
[2023-11-27 13:25] LABS: Thyroid Stimulating Hormone 3.41 uIU/mL (0.47-4.68)
== END ==
PROVIDERS: Family Provider Nurse Practitioner Family; PCP Internal Medicine
DX: E09.9 Drug or chemical induced diabetes mellitus without complications (principal); E03.9 Hypothyroidism, unspecified
CPT/HCPCS: 36415; 83036; 84443

== ENCOUNTER → 2024-02-06 08:12 | Outpatient (ROUT) | payer MEDICARE, MEDICAID, SELFPAY ==
[2024-02-06 09:09] LABS: Alanine Aminotransferase 13 IU/L (<35); Albumin 3.8 g/dL (3.5-5.0); Albumin Globulin Ratio 1.2 (1.0-2.8); Alkaline Phosphatase 63 U/L (38-126); Aspartate Aminotransferase 26 IU/L (14-36); BUN Creatinine Ratio 23.7 (6-22); Bilirubin Total 0.6 mg/dL (0.2-1.3); Blood Urea Nitrogen 32 mg/dL (7-17); Carbon Dioxide 28 mmol/L (22-32); Chloride 96 mmol/L (98-107); Estimated Glomerular Filt Rate 43 mL/min (>60); Globulin 3.2 g/dL (1.7-4.1); Glucose 96 mg/dL (80-110); HEMOLYSIS < 15 (0-50); Sodium 135 mmol/L (137-145)
== END ==
PROVIDERS: Family Provider Nurse Practitioner Family; PCP Internal Medicine; Visit Provider Nurse Practitioner Gerontology
DX: Z51.11 Encounter for antineoplastic chemotherapy (principal); C54.1 Malignant neoplasm of endometrium
CPT/HCPCS: 36415; 80053

== ENCOUNTER 2024-03-02 01:54 | Emergency (ER) | payer MEDICARE, MEDICAID, SELFPAY ==
[2024-03-02] VITALS (10 sets, daily range): BP systolic 129–142; BP diastolic 60–76; PULSE 83–103; RESP 22; TEMP 36.6; O2SAT 93–97; BMI 34.3
--- NOTE | 2024-03-02 02:00 | ED_ITS ---
HPI - General Adult General Chief complaint: Nausea/Vomiting/Diarrhea Stated complaint: malaise Time Seen by Provider: 03/02/24 02:00 History of Present Illness HPI narrative: 68-year-old female reports history of endometrial cancer, status post surgery 5 years ago, ongoing chemotherapy via right chest Port-A-Cath site, infusion chemotherapies every 3 weeks, last chemotherapy about 6 weeks ago, complains of nausea and vomiting, no black or red color, loose stools, no black or red stools, for the last couple of days. Feeling malaise, generalized weakness today. Arrived by EMS from [facility]. Also occasional cough, denies shortness of breath, denies chest pain. Denies abdominal pain. Denies headache neck pain, no photophobia. Denies focal weakness to face arm or leg. Related Data Home Medications Medication Instructions Recorded Confirmed ascorbic acid (vitamin C) 500 mg 500 mg PO BID 06/27/18 08/02/18 tablet aspirin 81 mg tablet,delayed 81 mg PO DAILY 06/27/18 08/02/18 release diphenhydramine HCl 25 mg capsule 25 mg PO Q4-6H PRN as directed 06/27/18 07/11/18 (Benadryl) docusate sodium 100 mg capsule 100 mg PO DAILY PRN Constipation 06/27/18 07/11/18 ferrous sulfate 325 mg (65 mg 325 mg PO BID 06/27/18 08/02/18 iron) tablet furosemide 40 mg tablet (Lasix) 40 mg PO BID PRN edema, swelling 06/27/18 07/11/18 levothyroxine 112 mcg capsule 112 mcg PO DAILY 06/27/18 08/02/18 melatonin 5 mg capsule 5 mg PO BEDTIME sleep 06/27/18 08/02/18 metoprolol succinate 25 mg 25 mg PO DAILY 06/27/18 08/02/18 tablet,extended release 24 hr potassium chloride 20 mEq/15 mL 20 meq PO BID 06/27/18 08/02/18 oral liquid sertraline 50 mg tablet 50 mg PO DAILY 06/27/18 08/02/18 simvastatin 20 mg tablet (Zocor) 20 mg PO BEDTIME 06/27/18 08/02/18 Previous Rx's Medication Instructions Recorded misoprostol 200 mcg tablet 400 mcg (2 x 200 mcg) vaginal ONCE 07/24/18 #2 tabs loperamide 2 mg capsule 2 mg PO Q6H PRN loose stool #4 caps 03/02/24 potassium chloride 10 mEq oral 10 meq PO DAILY #5 ea 03/02/24 packet Allergies Allergy/AdvReac Type Severity Reaction Status Date / Time No Known Drug Allergies Allergy Verified 08/02/18 10:08 Review of Systems Review of Systems Narrative: see HPI Patient History Medical History (Updated 03/02/24 @ 02:52 by Brett Schneider MD) Type 2 diabetes mellitus Hypokalemia Hyponatremia Acute kidney injury Hx of respiratory failure Pneumonia (~05/2015) CAD (coronary artery disease) Hypothyroidism HTN (hypertension) Depression Hyperlipidemia DVT (deep venous thrombosis) Pulmonary embolism (~04/2015) Morbid obesity with BMI of 50.0-59.9, adult Surgical History (Updated 06/03/20 @ 08:48 by [employer] Az) Hx of partial thyroidectomy Hx of CABG (~02/2015) Social History (System 10/12/17 @ 11:04 by Karla Sosa) household members: caregiver Smoking Status: Never smoker Smoking Status: Never smoker Exam Narrative Exam Narrative: GENERAL: Well-developed patient, in mild distress. HEAD: Atraumatic. Normocephalic. EYES: Pupils equal round and reactive. Extraocular motions intact. No scleral icterus. No injection or drainage. ENT: Nose without bleeding, purulent drainage. Throat without erythema, tonsillar hypertrophy or exudate. Airway patent. NECK: Trachea midline. Non tender CARDIOVASCULAR: Regular rate and rhythm without murmurs, gallops, or rubs. RESPIRATORY: Clear to auscultation. Breath sounds equal bilaterally. No wheezes, rales, or rhonchi. Well-healed sternal midline scar. Right-sided upper anterior chest Port-A-Cath site without redness or fluctuance or crepitance. GASTROINTESTINAL: Abdomen soft, non-tender, nondistended. EXTREMITIES: No edema or joint tenderness. BACK: Nontender without deformity or crepitance. No flank tenderness. NEURO: AOx3. Motor functions grossly nonfocal SKIN: No rash or erythema of visible areas Initial Vital Signs Initial Vital Signs: Vital Signs Pulse Rate 96 H 03/02/24 01:58 PST Blood Pressure 141/72 H 03/02/24 01:58 PST Pulse Oximetry 95 03/02/24 01:58 PST Course Orders Ordered: ED Orders 03/02/24 02:02 EKG-12 Lead Stat 03/02/24 02:09 XR chest 1V Stat 03/02/24 02:10 GI Panel (Film Array) Stat 03/02/24 02:20 CBC Auto Diff [Complete Blood Count AUTO DIFF] Stat CMP [Comprehensive Metabolic Panel] Stat Covid-19 + FLU A/B + RSV - PCR Stat Lactate (Lactic Acid) Stat Troponin I Stat 03/02/24 03:05 Urinalysis and Microscopic Stat 03/02/24 03:17 Ictotest Urine Stat Discontinued Medications Sodium Chloride (Normal Saline 0.9%) 1,000 mls @ 500 mls/hr IV BOLUS ONE Stop: 03/02/24 04:10 Last Infusion: 03/02/24 03:40 Dose: Infused Loperamide HCl (Loperamide 2 Mg Capsule) 2 mg PO NOW ONE Stop: 03/02/24 03:31 Last Admin: 03/02/24 03:38 Dose: 2 mg Ondansetron HCl (Ondansetron 4 Mg/2 Ml Inj) 4 mg IV NOW ONE Stop: 03/02/24 02:17 Last Admin: 03/02/24 02:20 Dose: 4 mg Ondansetron HCl (Ondansetron 4 Mg Odt Prepack) 1 bottle MISC DIRECTED ONE Stop: 03/02/24 03:32 Last Admin: 03/02/24 03:35 Dose: 1 bottle Potassium Chloride (Potassium Chloride 20 Meq/15 Ml Udc) 40 meq PO NOW ONE Stop: 03/02/24 02:52 Last Admin: 03/02/24 02:59 Dose: 40 meq Potassium Chloride (Potassium Chloride 20 Meq/15 Ml Udc) 20 meq PO NOW ONE Stop: 03/02/24 03:32 Last Admin: 03/02/24 03:35 Dose: 20 meq Vital Signs Vital signs: Vital Signs - 8 hr 03/02/24 01:58 PST 03/02/24 01:58 PST 03/02/24 01:59 PST Temperature Pulse Rate 96 H 97 H Respiratory Rate Blood Pressure 141/72 H Pulse Oximetry 95 94 Oxygen Delivery Method 03/02/24 01:59 PST 03/02/24 02:00 03/02/24 02:02 Temperature 97.9 F Pulse Rate 98 H 92 H Respiratory Rate 22 Blood Pressure 142/70 H 141/72 H Pulse Oximetry 95 96 Oxygen Delivery Method Room Air Room Air 03/02/24 02:30 03/02/24 03:00 Temperature Pulse Rate 83 85 Respiratory Rate Blood Pressure Pulse Oximetry 94 95 Oxygen Delivery Method Room Air Medical Decision Making Lab Data Lab results reviewed: Yes I reviewed the patient's lab results. Lab results narrative: White blood cell count 8600, hemoglobin 14, platelets adequate. Potassium 3.0 low noted. Sodium 134 slight low, glucose 171. BUN 17 with creatinine 1.16. Serum CO2 28. Liver functions normal. 03/02/24 02:20 03/02/24 02:20 Labs: Lab Results 03/02/24 03/02/24 Range/Units 02:20 03:17 WBC 8.6 (4.5-11.0) X10^3/uL RBC 4.44 (4.0-5.2) X10^6/uL Hgb 14.0 (12.0-16.0) g/dL Hct 41.7 (36-46) % MCV 94.0 (80-100) fL MCH 31.6 (26-34) PG MCHC 33.6 (30-36) % RDW 14.6 (11.6-14.8) % Plt Count 315 (150-400) X10^3/uL Neut % (Auto) 79.4 H (50-75) % Lymph % (Auto) 12.7 L (25-40) % [place] % (Auto) 6.7 (3-14) % Eos % (Auto) 0.5 L (2-4) % Baso % (Auto) 0.7 (0-2) % Neut # (Auto) 6800 (7090-7368) /uL Lymph # (Auto) 1100 (3389-9255) /uL [place] # (Auto) 600 (0-900) /uL Eos # (Auto) 0 (0-450) /uL Baso # (Auto) 100 (0-100) /uL Sodium 134 L (137-145) mmol/L Potassium 3.0 L (3.4-5.1) mmol/L Chloride 91 L (98-107) mmol/L Carbon Dioxide 28 (22-32) mmol/L BUN 17 (7-17) mg/dL Creatinine 1.16 H (0.52-1.04) mg/dL Estimated GFR 52 L (>60) mL/min BUN/Creatinine Ratio 14.7 (6-22) Glucose 171 H (80-110) mg/dL Lactate 1.7 (0.7-2.1) mmol/L Calcium 7.2 L (8.4-10.2) mg/dL Total Bilirubin 0.9 (0.2-1.3) mg/dL AST 27 (14-36) IU/L ALT 16 (<35) IU/L Alkaline Phosphatase 76 (38-126) U/L Troponin I < 0.012 (0.01-0.034) ng/mL Total Protein 7.8 (6.3-8.2) g/dL Albumin 4.4 (3.5-5.0) g/dL Globulin 3.4 (1.7-4.1) g/dL Albumin/Globulin Ratio 1.3 (1.0-2.8) Urine Color Yellow Urine Appearance Sl cloudy Urine pH 5.0 (4.5-8.0) Ur Specific [place] 1.015 (1.000-1.035) Urine Protein Negative (Negative) Urine Glucose (UA) Negative (Negative) g/dL Urine Ketones Trace H (NEGATIVE) Urine Occult Blood Negative (Negative) Urine Nitrate Negative (Negative) Urine Bilirubin 1+ H (NEGATIVE) Ur Bilirubin Confirm Negative (Negative) Urine Urobilinogen 0.2 (0.2) E.U./dL Ur Leukocyte Esterase Negative (NEGATIVE) Urine RBC None seen (0-5/HPF) Urine WBC None seen (0-5/HPF) Ur Squamous Epith Cells 5-10 /hpf H (0-5/HPF) Urine Bacteria None seen (None) Ur Culture Indicated? Cult not indicated Vol Urine Centrifuged 10ml (spun) SARS-CoV-2 (PCR) Negative (Negative) Influenza A (RT-PCR) Flu a negative (NEGATIVE) Influenza B (RT-PCR) Flu b negative (NEGATIVE) RSV (PCR) Negative (Negative) Imaging Data Chest x-ray: Radiologist's Impression: CT chest single view. Impression: ?No acute cardiopulmonary abnormality is identified. ? Teleradiology report ECG Data Attestation: I personally reviewed and interpreted this ECG as follows: Interpretation: Normal sinus rhythm with a rate 81, no obvious ST segment elevation or depression changes. Flat T-waves noted throughout. HI 178, QRS 94, QTC 494. MDM Narrative Medical decision making narrative: 68-year-old female with history of endometrial cancer, infusion chemotherapy via right Port-A-Cath, has nausea vomiting and diarrhea, generalized weakness, malaise symptoms. Afebrile on triage, sirs screen negative. Right-sided chest Port-A-Cath site looks clean, lungs clear, cooperative, abdomen benign. EKG, chest x-ray, CBC, CMP, lactate, urinalysis, respiratory swab, GI panel swab results pending. IV fluid bolus. IV Zofran. White blood cell count normal, hemoglobin normal, lactate normal. Normal renal function. No specimen obtained for GI pathogens testing. EKG sinus rhythm without obvious ischemic changes, flat T-waves noted. Troponin negative. Potassium 3.0 before IV fluids noted. Nausea better after IV Zofran. Oral potassium 40 mEq solution. Oral loperamide dose. No stool collected while in the emergency department, no specimen received. Tolerated oral liquid formulations well. Chest x-ray no acute changes, see teleradiology report. Urine dip negative. Additional oral potassium 20 mEq after IV fluids. Will send prescription for oral potassium to take for the next few days as well. She felt better, wanted to go home, had ride home back to psych facility. Advised to recheck labs/electrolytes early this week. Home pack Zofran to use for nausea control if needed. Return precautions discussed Discharge Plan Departure Patient Disposition: Home Clinical Impression: Nausea vomiting and diarrhea, Generalized weakness, Hypokalemia Instructions: DI for Dehydration -- Adult, DI for Vomiting -- Adult Activity Restrictions/Additional Instructions: Generalized weakness, recent nausea vomiting and diarrhea, no bloody stools or bloody emesis reported. No fever on triage. Unremarkable vital signs. Chest and abdominal exam is reassuring. Screening labs showed low potassium blood level. Oral potassium was given. IV fluids was also given. Additional potassium supplement tabs for discharge, sent to your pharmacy. Consider recheck of your potassium level in follow up this next week. Follow up with your regular provider in the next couple of days to recheck your potassium levels. Follow up with your oncologist as planned. Prescriptions: New potassium chloride 10 mEq packet 10 meq PO DAILY Qty: 5 0RF loperamide 2 mg capsule 2 mg PO Q6H PRN (Reason: loose stool) Qty: 4 0RF No Action misoprostol 200 mcg tablet 400 mcg Vaginal ONCE Qty: 2 0RF Rx Instructions: administer 2 tablets vaginally at bedtime night before surgery. simvastatin [Zocor] 20 mg tablet 20 mg PO BEDTIME aspirin 81 mg tablet,delayed release (DR/EC) 81 mg PO DAILY sertraline 50 mg tablet 50 mg PO DAILY levothyroxine 112 mcg capsule 112 mcg PO DAILY melatonin 5 mg capsule 5 mg PO BEDTIME metoprolol succinate 25 mg tablet extended release 24 hr 25 mg PO DAILY furosemide [Lasix] 40 mg tablet 40 mg PO BID PRN (Reason: edema, swelling) potassium chloride 20 mEq/15 mL liquid 20 meq PO BID ferrous sulfate 325 mg (65 mg iron) tablet 325 mg PO BID docusate sodium 100 mg capsule 100 mg PO DAILY PRN (Reason: Constipation) diphenhydramine HCl [Benadryl] 25 mg capsule 25 mg PO Q4-6H PRN (Reason: as directed) ascorbic acid (vitamin C) 500 mg tablet 500 mg PO BID Referrals: Judy Castrejon MD [Primary Care Provider] - Stand Alone Forms: Patient Portal/API/Survey
--- NOTE | 2024-03-02 02:09 | DI.RAD.S_ITS ---
PROCEDURE: XR CHEST 1V INDICATIONS: cough, achey TECHNIQUE: One view of the chest was acquired. COMPARISON: [facility], CT, CT CHEST ABDOMEN PELVIS WITHOUT CONTRAST, 02/19/2024, 8:47. [facility], CR, XR CHEST 1 VIEW, 08/04/2022, 10:43. FINDINGS: Surgical changes and devices: There is a stable right-sided chest port. Stable CABG changes are seen. Lungs and pleura: Lungs are clear. No pleural effusions or pneumothorax. Mediastinum: Mediastinal contours appear normal. Heart size is normal. Bones and chest wall: No suspicious bony lesions. Age-appropriate bony degenerative changes are seen. Overlying soft tissues appear unremarkable. IMPRESSION: No focal infiltrates are seen. Postoperative and degenerative changes are seen. Dictated by: Tip Crum M.D. on 03/02/2024 at 6:41 Approved by: Tip Crum M.D. on 03/02/2024 at 6:46
[2024-03-02] MEDS: ONDANSETRON 4 MG/2 ML INJ IV (02:20)
[2024-03-02] MEDS: SODIUM CHLORIDE 0.9% 1,000 ML 500 ML IV (02:20)
[2024-03-02 02:27] LABS: Add Manual Diff / Slide Review NO; Basophils Absolute Auto 100 /uL (0-100); Basophils Percent Auto 0.7 % (0-2); Eosinophils Absolute Auto 0 /uL (0-450); Eosinophils Percent Auto 0.5 % (2-4); Hematocrit 41.7 % (36-46); Lymphocytes Absolute Auto 1100 /uL (1100-4500); Lymphocytes Percent Auto 12.7 % (25-40); Mean Corpuscular HGB Conc 33.6 % (30-36); Mean Corpuscular Hemoglobin 31.6 PG (26-34); Monocytes Absolute Auto 600 /uL (0-900); Monocytes Percent Auto 6.7 % (3-14); Neutrophils Absolute Auto 6800 /uL (1500-7000); Neutrophils Percent Auto 79.4 % (50-75); Platelet Count 315 X10^3/uL (150-400); Red Blood Cell Count 4.44 X10^6/uL (4.0-5.2); Red Cell Distribution Width 14.6 % (11.6-14.8); White Blood Cell Count 8.6 X10^3/uL (4.5-11.0)
--- NOTE | 2024-03-02 02:35 | EKG_ITS ---
[address] [address] Test Date: 2024-03-02 Pat Name: Sonal Hidalgo Department: [facility] Room: Gender: Female [employer]: : 1955 Requested By: Order Number: [id number] Reading MD: Stephane Rhoades MD Measurements Intervals [facility] Rate: 81 P: 86 DC: 178 QRS: 64 QRSD: 94 T: 115 QT: 426 QTc: 494 Interpretive Statements Normal sinus rhythm Possible Inferior infarct , age undetermined Electronically Signed On 03-03-2024 7:32:05 PST by Stephane Rhoades MD
[2024-03-02 02:40] LABS: Lactate (Lactic Acid) 1.7 mmol/L (0.7-2.1)
[2024-03-02 02:41] LABS: Alanine Aminotransferase 16 IU/L (<35); Albumin 4.4 g/dL (3.5-5.0); Albumin Globulin Ratio 1.3 (1.0-2.8); Alkaline Phosphatase 76 U/L (38-126); Aspartate Aminotransferase 27 IU/L (14-36); BUN Creatinine Ratio 14.7 (6-22); Bilirubin Total 0.9 mg/dL (0.2-1.3); Blood Urea Nitrogen 17 mg/dL (7-17); Calcium 7.2 mg/dL (8.4-10.2); Carbon Dioxide 28 mmol/L (22-32); Chloride 91 mmol/L (98-107); Estimated Glomerular Filt Rate 52 mL/min (>60); Globulin 3.4 g/dL (1.7-4.1); Glucose 171 mg/dL (80-110); HEMOLYSIS < 15 (0-50); Sodium 134 mmol/L (137-145); Total Protein 7.8 g/dL (6.3-8.2)
[2024-03-02 02:52] LABS: Troponin I < 0.012 ng/mL (0.01-0.034)
[2024-03-02] MEDS: POTASSIUM CHLORIDE 20 MEQ/15 ML UDC 40 MEQ PO (02:59)
[2024-03-02 03:03] LABS: Influenza A - CEPHEID Flu A NEGATIVE (NEGATIVE); Influenza B - CEPHEID Flu B NEGATIVE (NEGATIVE); Respiratory Syncytial Virus Negative (Negative)
[2024-03-02 03:09] LABS: COVID-19 CEPHEID 4-PLEX PCR Negative (Negative)
[2024-03-02] MEDS: ONDANSETRON 4 MG ODT PREPACK 1 BOTTLE MISC (03:35)
[2024-03-02] MEDS: POTASSIUM CHLORIDE 20 MEQ/15 ML UDC PO (03:35)
[2024-03-02] MEDS: LOPERAMIDE 2 MG CAPSULE PO (03:38)
[2024-03-02 03:49] LABS: Appearance Urine UA SL CLOUDY; Bilirubin Urine UA 1+ (NEGATIVE); Color Urine UA YELLOW; Glucose Urine UA NEGATIVE (Negative); Ketones Urine UA TRACE (NEGATIVE); Nitrite Urine UA NEGATIVE (Negative); Occult Blood Urine UA NEGATIVE (Negative); Protein Urine UA NEGATIVE (Negative); Specific Gravity Urine UA 1.015 (1.000-1.035); Urobilinogen Urine UA 0.2 E.U./dL (0.2)
[2024-03-02 03:59] LABS: Bacteria Urine None Seen; Leukocyte Esterase Urine UA NEGATIVE (NEGATIVE); RBC Urine None Seen (0-5/HPF); Urine Volume 10mL (spun); WBC Urine None Seen (0-5/HPF)
[2024-03-02 04:00] LABS: Culture Indicated Urine Cult Not Indicated; Squamous Epithelial Cell Urine 5-10 /HPF (0-5/HPF)
[2024-03-02 04:02] LABS: Ictotest Urine Negative (Negative)
== END 2024-03-02 05:24 | disposition home or self-care (01) ==
PROVIDERS: Emergency Provider Emergency Medicine; Family Provider Nurse Practitioner Family; PCP Internal Medicine
DX: R11.2 Nausea with vomiting, unspecified (principal); R05.9 Cough, unspecified; Z11.52 Encounter for screening for COVID-19; R19.7 Diarrhea, unspecified; R53.1 Weakness; E87.6 Hypokalemia; C54.1 Malignant neoplasm of endometrium; R07.9 Chest pain, unspecified
CPT/HCPCS: 0241U; 36415; 71045; 80053; 81001; 83605; 84484; 85025; 93005; 96361; 96374; 99284; J2405

== ENCOUNTER → 2024-03-05 06:11 | Outpatient (ROUT) | payer MEDICARE, MEDICAID, SELFPAY ==
[2024-03-05 07:45] LABS: BUN Creatinine Ratio 13.8 (6-22); Blood Urea Nitrogen 16 mg/dL (7-17); Carbon Dioxide 29 mmol/L (22-32); Chloride 95 mmol/L (98-107); Estimated Glomerular Filt Rate 52 mL/min (>60); Glucose 112 mg/dL (80-110); HEMOLYSIS < 15 (0-50); Potassium 3.6 mmol/L (3.4-5.1); Sodium 134 mmol/L (137-145)
[2024-03-05 07:53] LABS: Calcium 6.3 mg/dL (8.4-10.2); Magnesium 0.4 mg/dL (1.6-2.3)
== END ==
PROVIDERS: Family Provider Nurse Practitioner Family; PCP Internal Medicine; Visit Provider Registered Nurse
DX: E87.6 Hypokalemia (principal)
CPT/HCPCS: 36415; 80048; 83735

== ENCOUNTER → 2024-03-12 06:20 | Outpatient (ROUT) | payer MEDICARE, MEDICAID, SELFPAY ==
[2024-03-12 08:39] LABS: Alanine Aminotransferase 16 IU/L (<35); Albumin 3.7 g/dL (3.5-5.0); Albumin Globulin Ratio 1.4 (1.0-2.8); Alkaline Phosphatase 75 U/L (38-126); Aspartate Aminotransferase 29 IU/L (14-36); BUN Creatinine Ratio 14.1 (6-22); Bilirubin Total 0.6 mg/dL (0.2-1.3); Blood Urea Nitrogen 13 mg/dL (7-17); Calcium 9.2 mg/dL (8.4-10.2); Carbon Dioxide 30 mmol/L (22-32); Chloride 99 mmol/L (98-107); Estimated Glomerular Filt Rate > 60 mL/min (>60); Globulin 2.6 g/dL (1.7-4.1); Glucose 107 mg/dL (80-110); HEMOLYSIS < 15 (0-50); Magnesium 1.3 mg/dL (1.6-2.3); Potassium 4.1 mmol/L (3.4-5.1); Sodium 137 mmol/L (137-145); Total Protein 6.3 g/dL (6.3-8.2)
== END ==
PROVIDERS: Family Provider Nurse Practitioner Family; PCP Internal Medicine
DX: E83.51 Hypocalcemia (principal); E83.42 Hypomagnesemia; E87.6 Hypokalemia
CPT/HCPCS: 36415; 80053; 83735

== ENCOUNTER → 2024-04-02 06:17 | Outpatient (ROUT) | payer MEDICARE, MEDICAID, SELFPAY ==
[2024-04-02 08:18] LABS: Uric Acid 7.7 mg/dL (2.5-6.2)
== END ==
PROVIDERS: Family Provider Nurse Practitioner Family; PCP Internal Medicine; Visit Provider Internal Medicine
DX: M79.671 Pain in right foot (principal); M79.672 Pain in left foot
CPT/HCPCS: 36415; 84550

== ENCOUNTER → 2024-10-01 08:00 | Outpatient (ROUT) | payer MEDICARE, MEDICAID, SELFPAY ==
[2024-10-01 08:28] LABS: Hemoglobin A1C% w Est Avg Glu 4.8 % (4.0-6.0)
== END ==
PROVIDERS: Family Provider Nurse Practitioner Family; PCP Internal Medicine
DX: E11.9 Type 2 diabetes mellitus without complications (principal)
CPT/HCPCS: 36415; 83036

== ENCOUNTER → 2024-10-15 08:20 | Outpatient (ROUT) | payer MEDICARE, MEDICAID, SELFPAY ==
[2024-10-15 08:38] LABS: Hematocrit 33.8 % (36-46); Hemoglobin 11.3 g/dL (12.0-16.0); Mean Corpuscular HGB Conc 33.6 % (30-36); Mean Corpuscular Hemoglobin 33.1 PG (26-34); Mean Corpuscular Volume 98.5 fL (80-100); Platelet Count 168 X10^3/uL (150-400); Red Blood Cell Count 3.43 X10^6/uL (4.0-5.2); Red Cell Distribution Width 13.4 % (11.6-14.8); White Blood Cell Count 4.4 X10^3/uL (4.5-11.0)
[2024-10-15 08:50] LABS: BUN Creatinine Ratio 23.1 (6-22); Blood Urea Nitrogen 33 mg/dL (7-17); Calcium 8.9 mg/dL (8.4-10.2); Carbon Dioxide 24 mmol/L (22-32); Chloride 106 mmol/L (98-107); Cholesterol 165 mg/dL (140-199); Estimated Glomerular Filt Rate 40 mL/min (>60); Glucose 85 mg/dL (70-99); HDL Cholesterol 42 mg/dL (40-60); HEMOLYSIS < 15 (0-50); LDL Cholesterol Calculated 93 mg/dL (<100); Magnesium 1.8 mg/dL (1.6-2.3); Potassium 4.6 mmol/L (3.4-5.1); Sodium 137 mmol/L (137-145); Triglycerides 148 mg/dL (35-150)
[2024-10-15 09:37] LABS: Vitamin B12 189 pg/mL (239-931)
== END ==
LOC: LAB 08:21
PROVIDERS: Family Provider Nurse Practitioner Family; PCP Internal Medicine; Visit Provider Registered Nurse
DX: E78.5 Hyperlipidemia, unspecified (principal); E11.9 Type 2 diabetes mellitus without complications; E87.6 Hypokalemia; C80.1 Malignant (primary) neoplasm, unspecified
CPT/HCPCS: 36415; 80048; 80061; 82607; 83735; 85027